=== PATIENT | female | born 1955 | race African-American/Black ===

== ENCOUNTER 2016-10-18 05:46 | Emergency (ER) | payer OTHER ==
[~2016-10-18] VITALS: Ht 157.5 cm; Wt 58.1 kg
[~2016-10-18 05:46] MED LIST: ACETAMINOPHEN500 M5 PO; AUGMENTIN 875-1 EAC1 ORAL; BACTRIM DS TAB1 EAC1 ORAL; BENADRYL12.5 M1 PO; CEPHALEXIN500 MG ORAL; COLACE100 MG ORAL; CYCLOBENZAPRINE10 MG ORAL; IBUPROFEN600 MG ORAL; KEFLEX500 MG ORAL; NEXIUM20 MG ORAL; NITROFURANTOIN100 M2 ORAL; NKM; NORCO 5-325 TA1 EACH ORAL; OMEPRAZOLE40 M1 ORAL; ONDANSETRON ODT4 MG ORAL; PERCOCET 5-3251 EACH ORAL; PRILOSEC OTC20 MG ORAL; TRAMADOL HCL50 MG ORAL; UNOBMED
[2016-10-18] MEDS ORDERED: NKM (06:07)
[2016-10-18] MEDS ORDERED: Oxycodone/Acetaminophen 5-325 ORAL ONE (06:30)
[2016-10-18] MEDS ORDERED: Bacitracin Oint UD TOPIC ONE (06:30)
--- NOTE | 2016-10-18 07:03 | Emergency Room Report ---
History of Present Illness General Chief Complaint: Lower Back Pain or Injury Source: Patient Present Illness HPI The patient fell 2 days ago. She slipped and hit her tailbone. Her zippers cut her elbows. She's complaining of right elbow pain and back pain in tailbone pain. She is able to ambulate - she drove herself here. She denies any numbness. There is no incontinence and she is able to move her bowels. The pain is greater than 10 according to her burning and aching. She is able to sit and stand without any difficulty. Chest pain when she moves her elbow. Her tetanus is less than 10 years. She states she has only taken 500 mg Tylenol with minimal relief. She is not on blood thinners she does not have an oncologic problem. She has a history of scoliosis in the past. She has had x-rays for that problem. She states that she wants x-rays done today. She's had bladder infections and feels that she might have one now. Initially patient is denied allergy to Toradol and then later stated she believes that she might have some strange reaction when she gets Toradol. No fevers, dizziness, GROSS, CP, cough, SOB, change in bowels. Allergies: Coded Allergies: LEVOFLOXACIN (Verified Allergy, Mild, ANAPHYLAXIS, 10/18/16) KETOROLAC TROMETHAMINE (Verified Allergy, Unknown, 10/18/16) Pt received toradol (yesterday) in my care with absolutely no adverse reaction. - Jaber MORPHINE (Verified Allergy, Unknown, 10/18/16) TETRACYCLINE (Verified Allergy, Unknown, 10/18/16) ASPIRIN (Verified Adverse Reaction, Mild, GI UPSET, 05/19/15) CODEINE (Verified Adverse Reaction, Mild, GI UPSET, 05/19/15) Patient History Past Medical History: see triage record, other - scoleosis Social History: Reports: smoking Social History Narrative patient drove herself here and can have that person give her a ride home Last Menstrual Period: unk Now: No Reviewed Nursing Documentation: PMH: Agreed, PSxH: Agreed Nursing Documentation-PMH Hx Hypertension: No Hx Pacemaker: No Hx Asthma: Yes Hx COPD: No Hx Cancer: No Hx Dialysis: No History Of Psychiatric Problem: Yes - depression Hx Neurological Problems: No Hx Cerebrovascular Accident: No Hx Seizures: No Review of Systems All Other Systems: negative except mentioned in HPI Physical Exam Vital Signs Date Time Temp Pulse Resp B/P Pulse Ox O2 Delivery O2 Flow Rate FiO2 10/18/16 05:58 97.5 76 18 125/85 97 Room Air Sp02 EP Interpretation: reviewed, normal General Appearance: well appearing, no apparent distress, GCS 15 Head: normocephalic, atraumatic Eyes: bilateral eye PERRL, bilateral eye normal inspection ENT: moist mucus membranes Neck: full range of motion, supple, no bony tend Respiratory: lungs clear, normal breath sounds Cardiovascular #1: regular rate, rhythm Cardiovascular #2: 2+ radial (R) Gastrointestinal: normal inspection, normal bowel sounds, non tender, no mass, non-distended Musculoskeletal: gait/station normal, normal range of motion, other - lumbar tenderness and scoleosis - upper chest Neurologic: alert, oriented x3, motor strength/tone normal, DTRs symmetric, SLR negative - except for R leg - some tenderness at 90 degrees (but able to sit and lay down without diffitulty), sensory intact, cerebellar normal, normal gait, speech normal Reflexes: 2+ knee (R), 2+ knee (L), 2+ ankle (R), 2+ ankle (L) Skin: normal inspection, warm/dry, abrasions - forearms Medical Decision Making Diagnostic Impression: Primary Impression: Contusion of elbow Additional Impressions: Lumbar strain Qualified Codes: S39.012A - Strain of muscle, fascia and tendon of lower back , initial encounter Hx of scoliosis Back pain post fall ER Course Patient presents with back pain after slip and fall. History of scoliosis. Differential includes fracture, strain, sprain. Exam is against this being a fracture and she has no red flag symptoms. She still insisted that she wants x- rays done including her right elbow. In addition she has dysuria and so urinalysis will be obtained. X-rays have been ordered and Percocet was ordered. Toradol was initially considered however the fact she has some possible adverse reaction this was held at the moment. Xrays being performed. Before I left, she states the Percocet had excellent results in relieving her pain. Signed out to Dr. Malin. Labs Test 10/18/16 07:50 Urine Color Pale yellow Urine Appearance Clear Urine pH 7 (4.5-8.0) Urine Specific [place] 1.005 (1.005-1.035) Urine Protein Negative (NEGATIVE) Urine Glucose (UA) Negative (NEGATIVE) Urine Ketones Negative (NEGATIVE) Urine Occult Blood 4+ (NEGATIVE) Urine Nitrite Negative (NEGATIVE) Urine Bilirubin Negative (NEGATIVE) Urine Urobilinogen Normal MG/DL (0.0-1.0) Urine Leukocyte Esterase Negative (NEGATIVE) Urine RBC 2-4 /HPF (0 - 2) Urine WBC 0-2 /HPF (0 - 2) Urine Squamous Epithelial Cells Occasional /LPF Urine Bacteria Occasional /HPF (NONE) Last Vital Signs Date Time Temp Pulse Resp B/P Pulse Ox O2 Delivery O2 Flow Rate FiO2 10/18/16 08:44 97.5 72 17 125/78 99 Room Air Status: improved Disposition: HOME, SELF-CARE Condition: Improved Scripts Oxycodone/Acetaminophen 5-325* (PERCOCET 5-325 MG TABLET*) 1 Each Tablet 1 TAB ORAL Q6H Y for For Pain, #15 TAB Prov: Bruno Malin MD 10/18/16 Referrals: [facility] HUGHES,REFERRING (PCP) Lewis Jones M.D. Oct 18, 2016 07:03
[2016-10-18 07:58] VITALS: BP 123/81
--- NOTE | 2016-10-18 07:58 | Emergency Room Report ---
History of Present Illness General Chief Complaint: Lower Back Pain or Injury Source: Patient Present Illness Allergies: Coded Allergies: LEVOFLOXACIN (Verified Allergy, Mild, ANAPHYLAXIS, 10/18/16) KETOROLAC TROMETHAMINE (Verified Allergy, Unknown, 10/18/16) Pt received toradol (yesterday) in my care with absolutely no adverse reaction. - Jaber MORPHINE (Verified Allergy, Unknown, 10/18/16) TETRACYCLINE (Verified Allergy, Unknown, 10/18/16) ASPIRIN (Verified Adverse Reaction, Mild, GI UPSET, 05/19/15) CODEINE (Verified Adverse Reaction, Mild, GI UPSET, 05/19/15) Patient History Last Menstrual Period: unk Now: No Nursing Documentation-PMH Hx Hypertension: No Hx Pacemaker: No Hx Asthma: Yes Hx COPD: No Hx Cancer: No Hx Dialysis: No History Of Psychiatric Problem: Yes - depression Hx Neurological Problems: No Hx Cerebrovascular Accident: No Hx Seizures: No Physical Exam Vital Signs Date Time Temp Pulse Resp B/P Pulse Ox O2 Delivery O2 Flow Rate FiO2 10/18/16 05:58 97.5 76 18 125/85 97 Room Air Medical Decision Making Diagnostic Impression: Primary Impression: Fall Additional Impressions: Elbow abrasion Low back pain Low back pain associated with a spinal disorder other than radiculopathy or spinal stenosis Low back pain at multiple sites ER Course Patient signed out to me by Dr. Jones, pending final reading is on x-rays. Patient had a fall 2 days ago, she is been observed ambulate without difficulty in the ER, x-rays of the elbow, spine do not reveal fracture though there is significant scoliosis. Patient received Percocet and had some improvement in her pain. Patient be discharged with family to home to followup with primary physician with a short course of pain medicines and counseling on low backache. Also had a urinalysis which is pending, based on urinalysis results will determine if patient needs antibiotics or not. Laboratory Tests Test 10/18/16 07:50 Urine Color Pale yellow Urine Appearance Clear Urine pH 7 (4.5-8.0) Urine Specific [place] 1.005 (1.005-1.035) Urine Protein Negative (NEGATIVE) Urine Glucose (UA) Negative (NEGATIVE) Urine Ketones Negative (NEGATIVE) Urine Occult Blood 4+ (NEGATIVE) H Urine Nitrite Negative (NEGATIVE) Urine Bilirubin Negative (NEGATIVE) Urine Urobilinogen Normal MG/DL (0.0-1.0) Urine Leukocyte Esterase Negative (NEGATIVE) Urine RBC Pending Urine WBC Pending Urine Squamous Epithelial Cells Pending Urine Bacteria Pending Other X-Ray Diagnostic Results Other X-Ray Diagnostic Results : X-Ray Ordered: spine and elbow Date: Oct 18, 2016 Time: 07:56 EP Interpretation: Yes Findings: no fractures, no dislocation, no soft tissue swelling, other - iliopsoas, no fractures Number of Views: other - multiple Reevaluation Time: 07:56 Last Vital Signs Date Time Temp Pulse Resp B/P Pulse Ox O2 Delivery O2 Flow Rate FiO2 10/18/16 05:58 97.5 76 18 125/85 97 Room Air Status: improved Disposition: HOME, SELF-CARE Condition: Stable Scripts Oxycodone/Acetaminophen 5-325* (PERCOCET 5-325 MG TABLET*) 1 Each Tablet 1 TAB ORAL Q6H Y for For Pain, #15 TAB Prov: Bruno Malin MD 10/18/16 Referrals: MG HUGHES,REFERRING (PCP) Bruno Malin MD Oct 18, 2016 07:57
[2016-10-18 08:24] LABS: APPEARANCE,URINE CLEAR; KETONES,URINE NEGATIVE (NEGATIVE); LEUKOCYTE ESTERASE ,URINE NEGATIVE (NEGATIVE); NITRITE,URINE NEGATIVE (NEGATIVE); PH,URINE 7 (4.5-8.0); PROTEIN,URINE NEGATIVE (NEGATIVE); UROBILINOGEN,URINE NORMAL MG/DL (0.0-1.0)
[2016-10-18] MEDS ORDERED: PERCOCET 5-3251 EACH ORAL (08:27)
--- NOTE | 2016-10-18 08:28 | Diagnostic Imaging Report ---
Indications: Fall, low back pain. Technique: 3 views of the lumbar spine Findings: Comparison: None Mild dextroscoliosis. Minimal lateral subluxations are present at L2-3 through L4-5. Vertebral alignment otherwise intact. No fracture, lytic destruction, or other acute changes are demonstrated. Mild facet sclerosis L5-S1. Scattered arterial mural calcification. IMPRESSION: No evidence of acute injury Mild lower lumbar facet arthropathy Mild scoliosis
--- NOTE | 2016-10-18 08:28 | Diagnostic Imaging Report ---
Indications: , Back pain. Technique: 3 views of the thoracic spine Findings: Comparison: None Moderate S-shaped scoliosis is present. Vertebral and intact.. No fracture, lytic destruction, paraspinous soft tissue swelling, or other acute changes are demonstrated. Multilevel disc space narrowing with marginal osteophyte formation.. IMPRESSION: No evidence of acute injury to the thoracic spine Scoliosis Degenerative spondylosis.
--- NOTE | 2016-10-18 08:30 | Diagnostic Imaging Report ---
Indications: Wall, sacrococcygeal injury, pain Technique: Two-view sacrum and coccyx. Findings: Comparison: None No fracture, dislocation, joint space widening , surrounding soft tissue swelling/foreign body/other abnormality, or other acute changes are identified. Small nodular calcific/metallic densities overlying the sacrum on AP view, not seen on lateral view, are likely external to the patient. IMPRESSION: No evidence of acute injury.
[2016-10-18 08:31] LABS: BACTERIA,URINE OCCASIONAL /HPF; SQUAMOUS EPITHELIAL CELL,UR OCCASIONAL /LPF (NONE/OCC); WBC,URINE 0-2 /HPF (0 - 2)
--- NOTE | 2016-10-18 08:33 | Diagnostic Imaging Report ---
Indications: Fall, right elbow injury, pain Technique: 3 views right elbow. Findings: Comparison: None No fracture, dislocation, joint space widening , fat pad displacement , surrounding soft tissue swelling/foreign body/other abnormality, or other acute changes are identified. IMPRESSION: No evidence of acute injury.
[2016-10-18 08:39] VITALS: BP 125/78
[2016-10-18 08:44] VITALS: BP 125/78
== END 2016-10-18 08:45 | disposition home or self-care (01) ==
LOC: EMR 06:20
DX: M54.5 Low back pain (principal); S50.311A Abrasion of right elbow, initial encounter; W01.0XXA Fall on same level from slipping, tripping and stumbling without subsequent striking against object, initial encounter; Y92.89 Other specified places as the place of occurrence of the external cause; Y99.9 Unspecified external cause status; M41.9 Scoliosis, unspecified; J45.909 Unspecified asthma, uncomplicated; F32.9 Major depressive disorder, single episode, unspecified; Z88.3 Allergy status to other anti-infective agents; Z88.5 Allergy status to narcotic agent; Z88.6 Allergy status to analgesic agent
CPT/HCPCS: 72020; 72070; 72220; 81003; 99284

== ENCOUNTER 2017-12-13 01:06 | Emergency (ER) | payer OTHER ==
[~2017-12-13] VITALS: Ht 157.5 cm; Wt 57.6 kg
[2017-12-13 01:41] VITALS: BP 119/79
[2017-12-13] MEDS ORDERED: TRAMADOL HCL50 MG ORAL (02:02)
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
[2017-12-13 02:10] VITALS: BP 119/79
== END 2017-12-13 02:10 | disposition home or self-care (01) ==
LOC: EMR 01:47
DX: S50.01XA Contusion of right elbow, initial encounter (principal); J45.909 Unspecified asthma, uncomplicated; Z88.1 Allergy status to other antibiotic agents; Z88.6 Allergy status to analgesic agent; V43.52XA Car driver injured in collision with other type car in traffic accident, initial encounter; Y92.410 Unspecified street and highway as the place of occurrence of the external cause
CPT/HCPCS: 99283

== ENCOUNTER 2019-11-19 07:42 | Inpatient (IN) | payer MEDICARE, OTHER ==
[~2019-11-19] VITALS: Ht 157.5 cm; Wt 61.7 kg
[2019-11-19] MEDS ORDERED: ASPIR 8181 MG ORAL (07:50)
[2019-11-19] MEDS ORDERED: ACETAMINOPHEN500 M5 ORAL (07:50)
--- NOTE | 2019-11-19 08:10 | Emergency Room Report ---
History of Present Illness General Chief Complaint: Abdominal Pain Source: Patient Present Illness HPI Patient presents with 1 week of abdominal pain. It is become severe over the last 24 hours. Is diffuse in her abdomen. She been vomiting no blood. She is passing some bright red blood per rectum also and may be some clot material. No diarrhea. No dysuria. She had fevers last night and felt chilled but did not document her temperature. She is taking xdme-bol-ebwrwsw pain medication without relief. She is never had pain like this before. She describes it as crampy. It she says is greater than 10/10 at this time nonradiating but diffuse. No sore throat, chest pain, palpitations, shortness of breath, rashes, depression, anxiety, visual changes, dizziness, headache. Allergies: Coded Allergies: LEVOFLOXACIN (Verified Allergy, Mild, ANAPHYLAXIS, 10/18/16) KETOROLAC TROMETHAMINE (Verified Allergy, Unknown, 10/18/16) Pt received toradol (yesterday) in my care with absolutely no adverse reaction. - Jaber MORPHINE (Verified Allergy, Unknown, 10/18/16) TETRACYCLINE (Verified Allergy, Unknown, 10/18/16) ASPIRIN (Verified Adverse Reaction, Mild, GI UPSET, 05/19/15) CODEINE (Verified Adverse Reaction, Mild, GI UPSET, 05/19/15) Patient History Past Medical History: see triage record Past Surgical History: , hysterectomy - partial Social History: Denies: smoking - former : 7 Nursing Documentation-PMH Hx Hypertension: No Hx Pacemaker: No Hx Asthma: Yes Hx COPD: No Hx Cancer: No Hx Dialysis: No Hx Neurological Problems: No Hx Cerebrovascular Accident: No Hx Seizures: No Physical Exam Vital Signs Date Time Temp Pulse Resp B/P (MAP) Pulse Ox O2 Delivery O2 Flow Rate FiO2 11/19/19 07:45 97.5 82 19 132/83 (99) 99 Room Air Medical Decision Making Diagnostic Impression: Primary Impression: Diverticulitis Additional Impression: Rectal bleeding ER Course Patient presents with abdominal pain for 1 week worsening over the last 24 hours. Differential includes diverticulitis, perforated ulcer, cholecystitis, urinary tract infection amongst others. Abdomen is nonsurgical at this time with peritonitis however work-up needs to be including EKG, chest x-ray, CT abdomen and pelvis with oral and IV contrast and labs. The patient will be given IV hydration, Reglan, Benadryl and Dilaudid. EKG without injury. Chest x-ray dextroscoliosis with atelectasis. White count normal. Left shift. Elevated BUN. Red cells in urine. CT scan as listed. Pain medicine repeated. Cefepime ordered for possible diverticulitis. Patient improved and admitted to medical floor. Surgical consult. Examined by admitting physician in emergency department. Laboratory Tests Test 11/19/19 07:56 11/19/19 08:05 Urine Color Pale yellow Urine Appearance Clear Urine pH 8 (4.5-8.0) Urine Specific [place] 1.015 (1.005-1.035) Urine Protein Negative (NEGATIVE) Urine Glucose (UA) Negative (NEGATIVE) Urine Ketones Negative (NEGATIVE) Urine Blood 4+ (NEGATIVE) H Urine Nitrite Negative (NEGATIVE) Urine Bilirubin Negative (NEGATIVE) Urine Urobilinogen Normal MG/DL (0.0-1.0) Urine Leukocyte Esterase Negative (NEGATIVE) Urine RBC Tntc /HPF (0 - 2) H Urine WBC 0-2 /HPF (0 - 2) Urine Squamous Epithelial Cells Few /LPF (NONE/OCC) Urine Bacteria Occasional /HPF (NONE) White Blood Count 10.8 K/UL (4.8-10.8) Red Blood Count 5.00 M/UL (4.20-5.40) Hemoglobin 14.9 G/DL (12.0-16.0) Hematocrit 43.5 % (37.0-47.0) Mean Corpuscular Volume 87 FL (80-99) Mean Corpuscular Hemoglobin 29.8 PG (27.0-31.0) Mean Corpuscular Hemoglobin Concent 34.2 G/DL (32.0-36.0) Red Cell Distribution Width 11.4 % (11.6-14.8) L Platelet Count 350 K/UL (150-450) Mean Platelet Volume 5.8 FL (6.5-10.1) L Neutrophils (%) (Auto) 80.1 % (45.0-75.0) H Lymphocytes (%) (Auto) 14.1 % (20.0-45.0) L Monocytes (%) (Auto) 4.8 % (1.0-10.0) Eosinophils (%) (Auto) 0.2 % (0.0-3.0) Basophils (%) (Auto) 0.7 % (0.0-2.0) Prothrombin Time 9.9 SEC (9.30-11.50) Prothrombin Time INR 0.9 (0.9-1.1) Activated Partial Thromboplast Time 27 SEC (23-33) Sodium Level 142 MMOL/L (136-145) Potassium Level 4.3 MMOL/L (3.5-5.1) Chloride Level 108 MMOL/L (98-107) H Carbon Dioxide Level 26 MMOL/L (21-32) Anion Gap 8 mmol/L (5-15) Blood Urea Nitrogen 19 mg/dL (7-18) H Creatinine 0.7 MG/DL (0.55-1.30) Estimate Glomerular Filtration Rate > 60 mL/min (>60) Glucose Level 105 MG/DL (74-106) Calcium Level 9.1 MG/DL (8.5-10.1) Total Bilirubin 0.2 MG/DL (0.2-1.0) Aspartate Amino Transferase (AST) 18 U/L (15-37) Alanine Aminotransferase (ALT) 17 U/L (12-78) Alkaline Phosphatase 114 U/L (46-116) Troponin I 0.000 ng/mL (0.000-0.056) Total Protein 7.5 G/DL (6.4-8.2) Albumin 3.7 G/DL (3.4-5.0) Globulin 3.8 g/dL Albumin/Globulin Ratio 1.0 (1.0-2.7) Lipase 104 U/L (73-393) EKG Diagnostic Results Rate: normal Rhythm: NSR ST Segments: no acute changes Rhythm Strip Diag. Results EP Interpretation: yes Rhythm: NSR, no PVC's, no ectopy Chest X-Ray Diagnostic Results Chest X-Ray Diagnostic Results : Chest X-Ray Ordered: Yes # of Views/Limited/Complete: 1 View Indication: Other EP Interpretation: Yes Interpretation: no consolidation, no effusion, no pneumothorax, other - Dextroscoliosis with some atelectasis Impression: Other Electronically Signed by: Electronically signed by Lewis Jones MD CT/MRI/US Diagnostic Results CT/MRI/US Diagnostic Results : Imaging Test Ordered: Abdomen pelvis Impression Colitis versus diverticulitis Last Vital Signs Date Time Temp Pulse Resp B/P (MAP) Pulse Ox O2 Delivery O2 Flow Rate FiO2 11/19/19 13:30 95 16 126/78 96 Room Air 11/19/19 08:50 97.5 Status: improved Disposition: PLACE IN OBSERVATION Condition: Serious Referrals: NOT CHOSEN IPA/,REFERRING (PCP) Lewis Jones MD Nov 19, 2019 08:10
[2019-11-19] MEDS ORDERED: Hydromorphone 0.5mg/0.5ml inj IVP ONE ×2 (08:15→13:30)
[2019-11-19] MEDS ORDERED: Omnipaque-300 100ml vial INJ PRN (08:15)
[2019-11-19] MEDS ORDERED: DiphenhydrAMINE 50mg/ml Inj IVP ONE (08:15)
[2019-11-19] MEDS ORDERED: Metoclopramide 10mg/2ml Inj IVP ONE (08:15)
--- NOTE | 2019-11-19 08:44 | NUR ---
ED Nurse Note: pt arrives from home for c/o abd pain x 1 month and this am woke up with bright red blood in stool. denies dysuria or frequency. states nausea without vomiting. skin w/d warm to touch. lungs cta. abd soft nt. states pain all over abd. relates she does have a hx of hemorrhoids.
--- NOTE | 2019-11-19 08:49 | NUR ---
ED Nurse Note: pt relates pain has decreased resting in room with even resp, appears comfortable
[2019-11-19 08:53] VITALS: BP 126/87
[2019-11-19 09:13] LABS: APPEARANCE,URINE CLEAR; BILIRUBIN, URINE NEGATIVE (NEGATIVE); COLOR,URINE PALE YELLOW; GLUCOSE, URINE (UA) NEGATIVE (NEGATIVE); KETONES,URINE NEGATIVE (NEGATIVE); PH,URINE 8 (4.5-8.0); PROTEIN,URINE NEGATIVE (NEGATIVE)
[2019-11-19 09:13] LABS: BASOPHILS % (AUTO) 0.7 % (0.0-2.0); EOSINOPHILS % (AUTO) 0.2 % (0.0-3.0); HEMATOCRIT 43.5 % (37.0-47.0); HEMOGLOBIN 14.9 G/DL (12.0-16.0); LYMPHOCYTES % (AUTO) 14.1 % (20.0-45.0); MEAN CORPUSCULAR VOLUME 87 FL (80-99); MONOCYTES % (AUTO) 4.8 % (1.0-10.0); NEUTROPHILS % (AUTO) 80.1 % (45.0-75.0); PLATELET COUNT 350 K/UL (150-450); RED CELL DISTRIBUTION WIDTH 11.4 % (11.6-14.8); WHITE BLOOD COUNT 10.8 K/UL (4.8-10.8)
[2019-11-19 09:14] LABS: LEUKOCYTE ESTERASE ,URINE NEGATIVE (NEGATIVE); NITRITE,URINE NEGATIVE (NEGATIVE); UROBILINOGEN,URINE NORMAL MG/DL (0.0-1.0)
[2019-11-19 09:14] LABS: ANION GAP 8 mmol/L (5-15); BLOOD UREA NITROGEN 19 mg/dL (7-18); CALCIUM 9.1 MG/DL (8.5-10.1); CARBON DIOXIDE 26 MMOL/L (21-32); CHLORIDE 108 MMOL/L (98-107); CREATININE 0.7 MG/DL (0.55-1.30); POTASSIUM 4.3 MMOL/L (3.5-5.1); SODIUM 142 MMOL/L (136-145)
[2019-11-19 09:16] LABS: INR 0.9 (0.9-1.1)
[2019-11-19 09:19] LABS: ALANINE AMINOTRANSFERASE 17 U/L (12-78); ALBUMIN 3.7 G/DL (3.4-5.0); ALKALINE PHOSPHATASE 114 U/L (46-116); ASPARTATE AMINO TRANSFERASE 18 U/L (15-37); BILIRUBIN,TOTAL 0.2 MG/DL (0.2-1.0)
--- NOTE | 2019-11-19 09:31 | Diagnostic Imaging Report ---
EXAM: XR Chest, 1 View CLINICAL HISTORY: ABD PAIN TECHNIQUE: Frontal view of the chest. COMPARISON: Chest x-ray dated 06/21/13 FINDINGS: Lungs: Subsegmental atelectasis in bilateral lung bases. Pleural space: Unremarkable. The costophrenic angles are sharp. No visible pneumothorax. Heart: Unremarkable. No cardiomegaly. Mediastinum: Unremarkable. Bones/joints: Dextroscoliosis centered in the mid thoracic spine. Tubes, lines and devices: Telemetry leads overlie the thorax. IMPRESSION: 1. Subsegmental atelectasis in bilateral lung bases. 2. Dextroscoliosis centered in the mid thoracic spine.
--- NOTE | 2019-11-19 09:44 | NUR ---
ED Nurse Note: tolerates po contrast and ivf infusion well. sleeping in room.
--- NOTE | 2019-11-19 11:18 | NUR ---
ED Nurse Note: pt to ct scan
--- NOTE | 2019-11-19 11:30 | NUR ---
ED Nurse Note: returned from ct scan.no changes in status
--- NOTE | 2019-11-19 11:59 | Diagnostic Imaging Report ---
EXAM: CT Abdomen and Pelvis With Intravenous Contrast CLINICAL HISTORY: ABD PAIN TECHNIQUE: Axial computed tomography images of the abdomen and pelvis with intravenous contrast. CTDI is 4.70 mGy and DLP is 232.50 mGy-cm. One or more of the following dose reduction techniques were used: automated exposure control, adjustment of the mA and/or kV according to patient size, use of iterative reconstruction technique. COMPARISON: CT abdomen pelvis dated 06/08/16 FINDINGS: Lung bases: Mild dependent atelectasis in bilateral lung bases. ABDOMEN: Liver: Unremarkable. No suspicious parenchymal lesions Gallbladder and bile ducts: Unremarkable. No calcified stones. No ductal dilation. Pancreas: Unremarkable. No mass. No ductal dilation. Spleen: Unremarkable. No splenomegaly. Adrenals: Unremarkable. No mass. Kidneys and ureters: Unremarkable. No solid mass. No hydronephrosis. Stomach and bowel: Segmental wall thickening throughout the descending and sigmoid colon, suggesting infectious or inflammatory colitis or diverticulitis. Remainder of the colon appears unremarkable. No abnormally distended loops of small bowel. GE junction and stomach appear unremarkable. PELVIS: Appendix: The appendix appears normal. Bladder: Unremarkable. No visible stones. Reproductive: The uterus and ovaries are not visualized and may be surgically absent. ABDOMEN and PELVIS: Intraperitoneal space: Unremarkable. No free air. No significant fluid collection. Bones/joints: No acute fracture. No dislocation. Soft tissues: Unremarkable. Vasculature: Atherosclerosis throughout the abdominal aorta and its proximal branches. No abdominal aortic aneurysm. Lymph nodes: Unremarkable. No enlarged lymph nodes. IMPRESSION: Findings suggesting infectious or inflammatory colitis versus diverticulitis, with segmental wall thickening throughout the descending and sigmoid colon. Mild adjacent inflammatory stranding. No adjacent free air or fluid collection. No evidence of bowel obstruction.
[2019-11-19 12:00] VITALS: BP 124/65
--- NOTE | 2019-11-19 12:19 | NUR ---
ED Nurse Note: belongings list done. pt prepared to transfer to m/s room. no new c/o tolerating ivf well
[2019-11-19] MEDS ORDERED: Cefepime HCl 1 GM in D5W 55 ML IVPB ONE (13:00)
--- NOTE | 2019-11-19 13:10 | NUR ---
NURSE NOTES: Received telephone report from ER nurse DIANE Jackson. Awaiting patient.
--- NOTE | 2019-11-19 13:18 | NUR ---
ED Nurse Note: pt requesting more pain meds prior to transfer to [address] [place] [address] taking report on pt and awaiting pt.
[2019-11-19 13:19] VITALS: BP 124/78
--- NOTE | 2019-11-19 13:30 | NUR ---
NURSE NOTES: Received patient from ER in [facility] via electromedical equipment technician. Belongings checked with leni, Allan, and patient. Patient has $84 in possession, which she wants to keep. Documented on belonging list. Patient A&Ox4, on room air. No signs of distress or labored breathing. IV intact, patent, and infusing IV fluids and antibiotics from ER. Bed in lowest position with call light in reach. Will notify MD and monitor patient.
[2019-11-19 13:45] VITALS: BP 121/75
[2019-11-19] MEDS ORDERED: Labetalol 5mg/ml 20ml vial IV PRN (15:15)
[2019-11-19] MEDS ORDERED: Acetaminophen (Non formulary) 100 ML IV PRN (15:15)
--- NOTE | 2019-11-19 15:21 | History & Physical ---
History of Present Illness General Date patient seen: Nov 19, 2019 Time patient seen: 04:00 Reason for Hospitalization: Abdominal Pain Present Illness HPI This is a 63-year-old female with a past medical history of gastritis and diabetes type 2 mellitus, currently managed by diet and lifestyle, who presents to emergency room with a chief complaint of worsening abdominal pain with associated diarrhea, nausea, vomiting, hematochezia and melena for the past 2 days. Patient states that the hematochezia and melena have been ongoing for approximately 2 days however the abdominal pain has actually been consistently going on for around 2 months. Patient states she had a colonoscopy around 2 years ago and was told the results were normal. Patient only takes omeprazole at home for her gastritis. In the emergency room CT abdomen pelvis was performed which revealed concerning findings for colitis versus diverticulitis, and in the ED, surgery was consulted. Given the patient does have melena, have also consulted GI as this could be inflammatory bowel disease not yet diagnosed as patient is nonseptic appearing he does not have an elevated white blood cell count. Patient denies a family history of autoimmune disease, inflammatory bowel disease, she only states there is a family history of cancer, unknown what type , and diabetes Currently she is hemodynamically stable and otherwise doing well. Only complaint at this time is abdominal pain, denies chest pain, denies shortness of breath. She did have some nondescript right breast pain but after examining breasts no signs of abscess or lumps. Allergies: Coded Allergies: LEVOFLOXACIN (Verified Allergy, Mild, ANAPHYLAXIS, 10/18/16) KETOROLAC TROMETHAMINE (Verified Allergy, Unknown, 10/18/16) Pt received toradol (yesterday) in my care with absolutely no adverse reaction. - Jaber MORPHINE (Verified Allergy, Unknown, 10/18/16) TETRACYCLINE (Verified Allergy, Unknown, 10/18/16) ASPIRIN (Verified Adverse Reaction, Mild, GI UPSET, 05/19/15) CODEINE (Verified Adverse Reaction, Mild, GI UPSET, 05/19/15) Medication History Scheduled Acetaminophen (Acetaminophen), 650 MG ORAL Q4H, (Reported) Aspirin* (Aspir 81*), 81 MG ORAL DAILY, (Reported) Esomeprazole Magnesium (Nexium), 20 MG ORAL DAILY, (Reported) Discontinued Medications Tramadol Hcl* (Ultram*), 50 MG ORAL Q6H PRN for For Pain Discontinued Reason: Therapy completed Patient History History Provided By: Patient Healthcare decision maker Resuscitation status Advanced Directive on File Review of Systems Review of Symptoms General ROS: no weight loss or fever Psychological ROS: no depression or mood changes, no memory loss Ophthalmic ROS: no visual changes or eye irritation ENT ROS: no nasal congestion, hearing loss, dizziness Allergy and Immunology ROS: no allergic symptoms or urticaria Hematological and Lymphatic ROS: no swollen glands, unusual bleeding or bruising Endocrine ROS: no polyuria, polydipsia, weight changes, temperature intolerance Respiratory ROS: no cough, shortness of breath, or wheezing Cardiovascular ROS: no chest pain or dyspnea on exertion Gastrointestinal ROS: Diffuse abdominal pain, blood in stool, nausea and vomiting Musculoskeletal ROS: no myalgias or arthralgias Neurological ROS: no TIA or stroke symptoms Dermatological ROS: no new or changing skin lesions, rashes or pruritis Physical Exam Physical Exam General appearance: alert, cooperative, no distress, appears stated age Head: Normocephalic, without obvious abnormality, atraumatic Eyes: conjunctivae/corneas clear. PERRL, EOM's intact. Fundi benign Throat: Lips, mucosa, and tongue normal. Teeth and gums normal Neck: supple, symmetrical, trachea midline, no adenopathy, thyroid: not enlarged, symmetric, no tenderness/mass/nodules, no carotid bruit and no JVD Lungs: clear to auscultation bilaterally Heart: regular rate and rhythm, S1, S2 normal, no murmur, click, rub or gallop Abdomen: Diffusely tender to palpation however normal active bowel sounds Extremities: extremities normal, atraumatic, no cyanosis or edema Pulses: 2+ and symmetric Skin: Skin color, texture, turgor normal. No rashes or lesions Neurologic: Grossly normal Last 24 Hour Vital Signs Date Time Temp Pulse Resp B/P (MAP) Pulse Ox O2 Delivery O2 Flow Rate FiO2 11/19/19 13:30 95 16 126/78 96 Room Air 11/19/19 13:19 74 20 124/78 99 Room Air 11/19/19 12:00 76 20 124/65 99 Room Air 11/19/19 08:53 68 20 126/87 99 Room Air 11/19/19 08:51 68 19 Room Air 11/19/19 08:50 97.5 11/19/19 07:45 97.5 82 19 132/83 (99) 99 Room Air Laboratory Tests Test 11/19/19 07:56 11/19/19 08:05 Urine Color Pale yellow Urine Appearance Clear Urine pH 8 (4.5-8.0) Urine Specific [place] 1.015 (1.005-1.035) Urine Protein Negative (NEGATIVE) Urine Glucose (UA) Negative (NEGATIVE) Urine Ketones Negative (NEGATIVE) Urine Blood 4+ (NEGATIVE) H Urine Nitrite Negative (NEGATIVE) Urine Bilirubin Negative (NEGATIVE) Urine Urobilinogen Normal MG/DL (0.0-1.0) Urine Leukocyte Esterase Negative (NEGATIVE) Urine RBC Tntc /HPF (0 - 2) H Urine WBC 0-2 /HPF (0 - 2) Urine Squamous Epithelial Cells Few /LPF (NONE/OCC) Urine Bacteria Occasional /HPF (NONE) White Blood Count 10.8 K/UL (4.8-10.8) Red Blood Count 5.00 M/UL (4.20-5.40) Hemoglobin 14.9 G/DL (12.0-16.0) Hematocrit 43.5 % (37.0-47.0) Mean Corpuscular Volume 87 FL (80-99) Mean Corpuscular Hemoglobin 29.8 PG (27.0-31.0) Mean Corpuscular Hemoglobin Concent 34.2 G/DL (32.0-36.0) Red Cell Distribution Width 11.4 % (11.6-14.8) L Platelet Count 350 K/UL (150-450) Mean Platelet Volume 5.8 FL (6.5-10.1) L Neutrophils (%) (Auto) 80.1 % (45.0-75.0) H Lymphocytes (%) (Auto) 14.1 % (20.0-45.0) L Monocytes (%) (Auto) 4.8 % (1.0-10.0) Eosinophils (%) (Auto) 0.2 % (0.0-3.0) Basophils (%) (Auto) 0.7 % (0.0-2.0) Prothrombin Time 9.9 SEC (9.30-11.50) Prothromb Time International Ratio 0.9 (0.9-1.1) Activated Partial Thromboplast Time 27 SEC (23-33) Sodium Level 142 MMOL/L (136-145) Potassium Level 4.3 MMOL/L (3.5-5.1) Chloride Level 108 MMOL/L (98-107) H Carbon Dioxide Level 26 MMOL/L (21-32) Anion Gap 8 mmol/L (5-15) Blood Urea Nitrogen 19 mg/dL (7-18) H Creatinine 0.7 MG/DL (0.55-1.30) Estimat Glomerular Filtration Rate > 60 mL/min (>60) Glucose Level 105 MG/DL (74-106) Calcium Level 9.1 MG/DL (8.5-10.1) Total Bilirubin 0.2 MG/DL (0.2-1.0) Aspartate Amino Transf (AST/SGOT) 18 U/L (15-37) Alanine Aminotransferase (ALT/SGPT) 17 U/L (12-78) Alkaline Phosphatase 114 U/L (46-116) Troponin I 0.000 ng/mL (0.000-0.056) Total Protein 7.5 G/DL (6.4-8.2) Albumin 3.7 G/DL (3.4-5.0) Globulin 3.8 g/dL Albumin/Globulin Ratio 1.0 (1.0-2.7) Lipase 104 U/L (73-393) Height (Feet): 5 Height (Inches): 2.00 Weight (Pounds): 128 Medications Current Medications Medications (Trade) Dose Ordered Sig/Raimundo Route PRN Reason Start Time Stop Time Status Last Admin Dose Admin Barium Sulfate (Readi-Cat 2) 450 ml NOW PRN ORAL Radiology Procedure 11/19/19 08:15 11/21/19 08:05 11/19/19 09:14 Iohexol (OMNIPAQUE-300 100ml) 100 ml NOW PRN INJ Radiology Procedure 11/19/19 08:15 11/21/19 08:05 Sodium Chloride 1,000 ml @ 300 mls/hr Q3H20M IV 11/19/19 08:15 12/19/19 08:14 11/19/19 11:43 Assessment/Plan Assessment/Plan: Assessment #Infectious vs Inflammatory Colitis,w/ associated Hematochezia/Melena ( GI symptoms present for 2 months, bleeding present for 2 days) #Gastritis --> Patient on outpatient ppi #DMII--> not on home meds, controlled with diet Plan Consult to GI , Surgery consulted in ER Zosyn IV, Stool Studies including Cdiff, Fecal WBC, and Blood Cx ( although patient is not septic appearing) ESR Protonix IV BID Patient allergic to multiple agents, therefore only option is dilaudid as ofiramev restricted at this facility Obtain A1C, Add insulin as needed PRNs for elevated BP and Nausea Full Liquid diet, avoid DVT ppx w/ concern for GIB MIPS Hospital declaration INPATIENT level of care is warranted for this patient because patient is a 89 year old with who presents with suspicion of . I have a high level of concern because . Patient is at high risk for . Plan of care/treatment include . Patient care is expected to be greater than 2 midnights. OBSERVATION level of care is warranted for this patient. Patient is a 89 year old with who presents with . Patient will be admitted for 1 midnight, but if additional night(s) is/are necessary, patient will be converted to inpatient status for the entire hospitalization Disposition: Once the patient is stable to leave the hospital, I anticipate the patient will likely be discharged to the following environment: Estimated discharge date: I spent 70 minutes on this patient's case, and minutes was dedicated to counseling and/or care coordination. MIPS (Merit-based Incentive Payment System) Applicable CPT: 85833, 98401 CHECK ALL THAT ARE MET: Measure #5 (CHF): All ages. Prescribe DANNY/ARB upon discharge for patients with left ventricular systolic dysfunction. If not, the reason is clearly documented in the medical chart. Measure #8 (CHF): All ages. Prescribe a beta mike upon discharge for patients with left ventricular systolic dysfunction. If not, the reason is clearly documented in the medical chart. Measure #47 Advance care plan or surrogate decision maker documented in the medical record. Measure #130 The provider has documented, updated, or reviewed the patients current medication list and has documented it in the patients note. Measure #374 (All): Send report to referring provider. Measure #407(Sepsis due to MSSA bacteremia): Age 18+ Patient treated with a beta-lactam antibiotic (Nafcillin, Oxacillin or Cefazolin) as definitive therapy. MEDICAL COMPLEXITY High complexity medical decision making (need 2/3 categories) Problem - need 4 points Acute/new problem with new plan for workup (4 points, 1 max) Acute/new problem without additional workup (3 points, 1 max) Unstable chronic problem actively being managed (2 point each, 2 max) Stable chronic problem actively being managed (1 point each, 2 max) Self-limited/transient process (constipation, muscle ache, etc) (1 point each , 2 max) Data - need 4 points Reviewed labs/imaging studies (1 points, 2 max) Independent review of imaging (EKG, xrays, etc) (2 points, 2 max) Discussed case with consult/other MD/RN (2 points, 2 max) High Risk - qualify if have one of the following: Severe exacerbation of acute problem, acute mental status change, IV narcotics , monitoring drug levels (vancomycin, INR, tacrolimus etc) Radha Lewis D.O. Nov 19, 2019 15:21
[2019-11-19] MEDS ORDERED: Enalaprilat 2.5mg/2ml Inj IV PRN (15:30)
[2019-11-19 16:00] VITALS: BP 120/72
[2019-11-19] MEDS: Piperacillin/Tazobactam 3.375 GM in NS 110 ML IVPB SCH ×2 (16:30→22:35)
[2019-11-19] MEDS: HYDROmorphone 1mg/ml Carpuject IVP PRN ×2 (18:26→22:36)
--- NOTE | 2019-11-19 19:19 | NUR ---
HAND-OFF: Report given to Leena Osman RN.
--- NOTE | 2019-11-19 19:50 | NUR ---
received patient on bed, awake and verbally responsive. respirations even and unlabored. no sob. no pain or discomfort. patient is requesting for snack, patient on full liquid diet. bed locked and in lowest position. call light and light button within easy reach. will continue plan of care. Addendum: 11/19/19 at 4 by Leena Crespo RN NURSE NOTES:
[2019-11-19 20:00] VITALS: BP 113/70
[2019-11-19] MEDS: Pantoprazole Inj IVP SCH (21:29)
[2019-11-20] VITALS: BP 114/65
[2019-11-20 04:00] VITALS: BP 115/64
[2019-11-20] MEDS: Piperacillin/Tazobactam 3.375 GM in NS 110 ML IVPB SCH ×3 (05:49→22:05)
[2019-11-20] MEDS: HYDROmorphone 1mg/ml Carpuject IVP PRN (05:54)
--- NOTE | 2019-11-20 07:19 | NUR ---
HAND-OFF: Report given to DIANE CHOW .
--- NOTE | 2019-11-20 07:43 | NUR ---
NURSE NOTES: Received patient in bed awake. No SOB or acute distress. IV line intact and patent, no s/sx of infiltration. Complaining of Dilaudid, requesting change of pain medication, will inform . ARLEEN catherine. Bed locked in lowest position. Call light within reach. Will continue plan of care.
[2019-11-20 08:00] VITALS: BP 100/65
[2019-11-20] MEDS: Pantoprazole Inj IVP SCH ×2 (08:14→20:40)
[2019-11-20 08:49] LABS: BASOPHILS % (AUTO) 0.8 % (0.0-2.0); EOSINOPHILS % (AUTO) 1.6 % (0.0-3.0); HEMATOCRIT 36.6 % (37.0-47.0); HEMOGLOBIN 12.9 G/DL (12.0-16.0); LYMPHOCYTES % (AUTO) 23.8 % (20.0-45.0); MEAN CORPUSCULAR VOLUME 88 FL (80-99); MONOCYTES % (AUTO) 5.8 % (1.0-10.0); PLATELET COUNT 312 K/UL (150-450); RED BLOOD COUNT 4.16 M/UL (4.20-5.40); RED CELL DISTRIBUTION WIDTH 11.4 % (11.6-14.8); WHITE BLOOD COUNT 8.6 K/UL (4.8-10.8)
[2019-11-20 09:31] LABS: ALANINE AMINOTRANSFERASE 16 U/L (12-78); ALBUMIN 3.1 G/DL (3.4-5.0); ALKALINE PHOSPHATASE 96 U/L (46-116); ANION GAP 9 mmol/L (5-15); ASPARTATE AMINO TRANSFERASE 13 U/L (15-37); BILIRUBIN,TOTAL 0.4 MG/DL (0.2-1.0); BLOOD UREA NITROGEN 7 mg/dL (7-18); CALCIUM 8.3 MG/DL (8.5-10.1); CARBON DIOXIDE 24 MMOL/L (21-32); CHLORIDE 109 MMOL/L (98-107); CREATININE 0.7 MG/DL (0.55-1.30); PHOSPHORUS 2.4 MG/DL (2.5-4.9); POTASSIUM 3.2 MMOL/L (3.5-5.1); SODIUM 142 MMOL/L (136-145)
[2019-11-20] MEDS ORDERED: HydrALAZINE 25mg tab ORAL PRN (12:30)
[2019-11-20] MEDS: Morphine Sulfate 2mg/ml Inj(IV/IM USE ONLY) IVP PRN (13:32)
[2019-11-20] MEDS: DiphenhydrAMINE 50mg/ml Inj IVP PRN (13:33)
[2019-11-20] MEDS ORDERED: Nulytely 4L ORAL SCH (14:00)
--- NOTE | 2019-11-20 14:15 | Consultation ---
History of Present Illness General Date patient seen: Nov 20, 2019 Reason for Hospitalization: Abdominal Pain Present Illness HPI This is a very pleasant 63-year-old female with a past medical history of gastritis and diabetes type 2 mellitus who presents to emergency room with a chief complaint of worsening abdominal pain with associated diarrhea, nausea, vomiting, hematochezia and melena for the past 2 days. Patient states that the hematochezia and melena have been ongoing for approximately 2 days however the abdominal pain has actually been consistently going on for around 2-3 months. She states she had a colonoscopy around 6 years ago and was told the results were normal. In the emergency room CT abdomen pelvis was performed which revealed concerning findings for colitis versus diverticulitis. Surgery was consulted to evaluate and assist with care. Patient seen chart reviewed, patient examined. Allergies: Coded Allergies: LEVOFLOXACIN (Verified Allergy, Mild, ANAPHYLAXIS, 10/18/16) KETOROLAC TROMETHAMINE (Verified Allergy, Unknown, 10/18/16) Pt received toradol (yesterday) in my care with absolutely no adverse reaction. - Jaber MORPHINE (Verified Allergy, Unknown, 10/18/16) TETRACYCLINE (Verified Allergy, Unknown, 10/18/16) ASPIRIN (Verified Adverse Reaction, Mild, GI UPSET, 05/19/15) CODEINE (Verified Adverse Reaction, Mild, GI UPSET, 05/19/15) Medication History Scheduled Acetaminophen (Acetaminophen), 650 MG ORAL Q4H, (Reported) Aspirin* (Aspir 81*), 81 MG ORAL DAILY, (Reported) Esomeprazole Magnesium (Nexium), 20 MG ORAL DAILY, (Reported) Discontinued Medications Tramadol Hcl* (Ultram*), 50 MG ORAL Q6H PRN for For Pain Discontinued Reason: Therapy completed Patient History History Provided By: Patient Healthcare decision maker Resuscitation status Chemical (Meds Only) Advanced Directive on File No Past Medical/Surgical History Past Medical/Surgical History: (1) Rectal bleeding (2) Diverticulitis (3) Sciatica (4) Sciatica (5) Migraine (6) Migraine (7) Dysuria (8) 40443 (9) Headache (10) Opiate dependence (11) 01277 (12) [id number] (13) Sepsis (14) UTI (urinary tract infection) (15) UTI (urinary tract infection) (16) Abdominal pain (17) 15768 (18) Foot fracture, left (19) Foot fracture, left (20) Lumbar strain (21) Unspecified injury of lower back, sequela (22) [id number] (23) Abdominal pain of unknown etiology (24) Contusion of right hand (25) Abrasion of left index finger (26) Hx of scoliosis (27) [id number] (28) Contusion of left knee and lower leg (29) Contusion of elbow (30) Should strain (31) UTI (32) abscess Family History Family History: FH: cancer FH: diabetes mellitus FH: urinary cancer Social History Social History: (1) Dysuria (2) Opiate dependence (3) [id number] (4) 01649 (5) Abdominal pain (6) 72923 (7) 57143 (8) Should strain (9) [id number] (10) [id number] (11) abscess (12) Migraine (13) Migraine (14) Foot fracture, left (15) Foot fracture, left (16) UTI (urinary tract infection) (17) Sciatica (18) Headache (19) Sciatica (20) Sepsis (21) UTI (urinary tract infection) (22) Contusion of right hand (23) Abrasion of left index finger (24) Contusion of left knee and lower leg (25) Unspecified injury of lower back, sequela (26) Hx of scoliosis (27) Lumbar strain (28) Contusion of elbow (29) Abdominal pain of unknown etiology (30) UTI (31) Rectal bleeding (32) Diverticulitis Review of Systems Review of Symptoms General ROS: no weight loss or fever Psychological ROS: no depression or mood changes, no memory loss Ophthalmic ROS: no visual changes or eye irritation ENT ROS: no nasal congestion, hearing loss, dizziness Allergy and Immunology ROS: no allergic symptoms or urticaria Hematological and Lymphatic ROS: no swollen glands, unusual bleeding or bruising Endocrine ROS: no polyuria, polydipsia, weight changes, temperature intolerance Respiratory ROS: no cough, shortness of breath, or wheezing Cardiovascular ROS: no chest pain or dyspnea on exertion Gastrointestinal ROS: abdominal pain, bright red blood in stool. Musculoskeletal ROS: no myalgias or arthralgias Neurological ROS: no TIA or stroke symptoms Dermatological ROS: no new or changing skin lesions, rashes or pruritis Physical Exam Physical Exam General appearance: alert, cooperative, no distress, appears stated age Head: Normocephalic, without obvious abnormality, atraumatic Eyes: conjunctivae/corneas clear. PERRL, EOM's intact. Fundi benign Throat: Lips, mucosa, and tongue normal. Teeth and gums normal Neck: supple, symmetrical, trachea midline, no adenopathy, thyroid: not enlarged, symmetric, no tenderness/mass/nodules, no carotid bruit and no JVD Lungs: clear to auscultation bilaterally Heart: regular rate and rhythm, S1, S2 normal, no murmur, click, rub or gallop Abdomen: soft, non-tender. Bowel sounds normal. No masses, no organomegaly Extremities: extremities normal, atraumatic, no cyanosis or edema Pulses: 2+ and symmetric Skin: Skin color, texture, turgor normal. No rashes or lesions Neurologic: Grossly normal Last 24 Hour Vital Signs Date Time Temp Pulse Resp B/P (MAP) Pulse Ox O2 Delivery O2 Flow Rate FiO2 11/20/19 08:00 97.7 73 18 100/65 (77) 98 11/20/19 06:24 97.8 11/20/19 04:00 97.8 61 18 115/64 (81) 96 11/20/19 00:00 97.7 60 18 114/65 (81) 96 11/19/19 21:00 Room Air 11/19/19 20:00 97.9 67 18 113/70 (84) 98 11/19/19 16:00 97.1 75 18 120/72 (88) 98 11/19/19 15:16 Room Air Intake and Output 11/19/19 11/20/19 19:00 07:00 Intake Total 1000 ml 447.5 ml Output Total 250 ml Balance 1000 ml 197.5 ml Intake Oral 0 ml 240 ml IV Total 1000 ml 207.5 ml Output Urine Total 250 ml # Voids 4 1 Laboratory Tests Test 11/20/19 08:10 White Blood Count 8.6 K/UL (4.8-10.8) Red Blood Count 4.16 M/UL (4.20-5.40) L Hemoglobin 12.9 G/DL (12.0-16.0) Hematocrit 36.6 % (37.0-47.0) L Mean Corpuscular Volume 88 FL (80-99) Mean Corpuscular Hemoglobin 30.9 PG (27.0-31.0) Mean Corpuscular Hemoglobin Concent 35.1 G/DL (32.0-36.0) Red Cell Distribution Width 11.4 % (11.6-14.8) L Platelet Count 312 K/UL (150-450) Mean Platelet Volume 5.9 FL (6.5-10.1) L Neutrophils (%) (Auto) 68.0 % (45.0-75.0) Lymphocytes (%) (Auto) 23.8 % (20.0-45.0) Monocytes (%) (Auto) 5.8 % (1.0-10.0) Eosinophils (%) (Auto) 1.6 % (0.0-3.0) Basophils (%) (Auto) 0.8 % (0.0-2.0) Sodium Level 142 MMOL/L (136-145) Potassium Level 3.2 MMOL/L (3.5-5.1) L Chloride Level 109 MMOL/L (98-107) H Carbon Dioxide Level 24 MMOL/L (21-32) Anion Gap 9 mmol/L (5-15) Blood Urea Nitrogen 7 mg/dL (7-18) Creatinine 0.7 MG/DL (0.55-1.30) Estimat Glomerular Filtration Rate > 60 mL/min (>60) Glucose Level 117 MG/DL (74-106) H Calcium Level 8.3 MG/DL (8.5-10.1) L Phosphorus Level 2.4 MG/DL (2.5-4.9) L Magnesium Level 1.7 MG/DL (1.8-2.4) L Total Bilirubin 0.4 MG/DL (0.2-1.0) Aspartate Amino Transf (AST/SGOT) 13 U/L (15-37) L Alanine Aminotransferase (ALT/SGPT) 16 U/L (12-78) Alkaline Phosphatase 96 U/L (46-116) Total Protein 6.3 G/DL (6.4-8.2) L Albumin 3.1 G/DL (3.4-5.0) L Globulin 3.2 g/dL Albumin/Globulin Ratio 1.0 (1.0-2.7) Height (Feet): 5 Height (Inches): 2.00 Weight (Pounds): 128 Medications Current Medications Medications (Trade) Dose Ordered Sig/Raimundo Route PRN Reason Start Time Stop Time Status Last Admin Dose Admin Barium Sulfate (Readi-Cat 2) 450 ml NOW PRN ORAL Radiology Procedure 11/19/19 08:15 11/21/19 08:05 11/19/19 09:14 Dextrose/ Electrolytes 1,000 ml @ 75 mls/hr [id number] IV 11/20/19 16:00 12/20/19 15:59 Diphenhydramine HCl (Benadryl) 25 mg Q6H PRN IVP Itching 11/20/19 10:00 12/20/19 09:59 11/20/19 13:33 Enalaprilat (Vasotec) 2.5 mg Q6H PRN IV SBP>160 11/19/19 15:30 12/19/19 15:29 Hydralazine HCl (Apresoline) 25 mg Q6H PRN ORAL SBP >160 11/20/19 12:30 12/20/19 12:29 Iohexol (OMNIPAQUE-300 100ml) 100 ml NOW PRN INJ Radiology Procedure 11/19/19 08:15 11/21/19 08:05 Magnesium Sulfate 100 ml @ 100 mls/hr Q1H IVPB 11/20/19 12:45 11/20/19 14:44 11/20/19 12:43 Morphine Sulfate (Morphine Sulfate) 2 mg Q6H PRN IVP For Pain 11/20/19 10:00 11/27/19 09:59 11/20/19 13:32 Ondansetron HCl (Zofran) 4 mg Q6H PRN IVP Nausea & Vomiting 11/19/19 15:15 12/19/19 15:14 11/20/19 03:12 Pantoprazole (Protonix) 40 mg EVERY 12 HOURS IVP 11/19/19 21:00 12/19/19 20:59 11/20/19 08:14 Piperacillin Sod/ Tazobactam Sod 3.375 gm/Sodium Chloride 110 ml @ 27.5 mls/hr EVERY 8 HOURS IVPB 11/19/19 16:00 11/24/19 15:59 11/20/19 05:49 Polyethylene Glycol/ Electrolytes (Nulytely) 4,000 ml ONCE ORAL 11/20/19 14:00 11/20/19 23:59 Potassium Chloride (K-Dur) 40 meq ONCE ORAL 11/20/19 16:30 11/20/19 17:30 Sodium Chloride 1,000 ml @ 125 mls/hr Q8H IV 11/19/19 15:15 12/19/19 15:14 11/20/19 05:49 Assessment/Plan Problem List: (1) Rectal bleeding ICD Codes: K62.5 - Hemorrhage of anus and rectum SNOMED: [id number] (2) Diverticulitis Assessment & Plan: Lung bases: Mild dependent atelectasis in bilateral lung bases. ABDOMEN: Liver: Unremarkable. No suspicious parenchymal lesions Gallbladder and bile ducts: Unremarkable. No calcified stones. No ductal dilation. Pancreas: Unremarkable. No mass. No ductal dilation. Spleen: Unremarkable. No splenomegaly. Adrenals: Unremarkable. No mass. Kidneys and ureters: Unremarkable. No solid mass. No hydronephrosis. Stomach and bowel: Segmental wall thickening throughout the descending and sigmoid colon, suggesting infectious or inflammatory colitis or diverticulitis. Remainder of the colon appears unremarkable. No abnormally distended loops of small bowel. GE junction and stomach appear unremarkable. PELVIS: Appendix: The appendix appears normal. Bladder: Unremarkable. No visible stones. Reproductive: The uterus and ovaries are not visualized and may be surgically absent. ABDOMEN and PELVIS: Intraperitoneal space: Unremarkable. No free air. No significant fluid collection. Bones/joints: No acute fracture. No dislocation. Soft tissues: Unremarkable. Vasculature: Atherosclerosis throughout the abdominal aorta and its proximal branches. No abdominal aortic aneurysm. Lymph nodes: Unremarkable. No enlarged lymph nodes. IMPRESSION: Findings suggesting infectious or inflammatory colitis versus diverticulitis, with segmental wall thickening throughout the descending and sigmoid colon. Mild adjacent inflammatory stranding. No adjacent free air or fluid collection. No evidence of bowel obstruction. ICD Codes: K57.92 - Diverticulitis of intestine, part unspecified, without perforation or abscess without bleeding SNOMED: [id number] (3) Abdominal pain Assessment & Plan: This is a 63-year-old female who presented with few months of abdominal pain with acute worsening over the last 2 days nausea vomiting and blood in stool. CT noted. Admitted for the care management. Surgery called patient evaluated. Patient that she feels little bit better now. Currently no nausea fever chills. States she is hungry and wants to eat a little bit more than a liquid diet that she is on. On abdominal examination no acute findings currently. Soft nontender nondistended bowel sounds noted no significant discomfort on palpation at this time. Labs noted otherwise stable. No acute surgical intervention indicated recommended Okay for diet Plan for colonoscopy as per GI Antibiotics for colitis for his diverticulitis We will follow with recommendations and serial exams Thank you for let me participate in patient's care Sumeet Gomes Nov 20, 2019 14:15
[2019-11-20 16:00] VITALS: BP_SYST 121; BP_SYST 139; BP_DIAS 68
--- NOTE | 2019-11-20 16:15 | Consultation ---
DATE OF CONSULTATION: 11/20/2019 CHIEF COMPLAINT: 1. Abdominal pain. 2. Rectal bleeding. HISTORY OF PRESENT ILLNESS: The patient is a 63-year-old female who presented to the hospital with complaint of almost one week of abdominal pain with bloody diarrhea. According to the patient, she has been having chronic abdominal pain, but at this time it is different. She had some hemorrhoidal bleeding in the past, but this one is bright red blood per rectum and associated with abdominal pain, nausea, vomiting, weight loss, which is all new of her. She had endoscopy, colonoscopy over 10 years ago and she is due for one anyway. PAST MEDICAL HISTORY: Significant for: 1. History of borderline diabetes, diet controlled. 2. High blood pressure. PAST SURGICAL HISTORY: 1. History of . 2. Partial hysterectomy. ALLERGIES: To multiple allergies including Levaquin, ketorolac, morphine, tetracycline, aspirin, codeine. MEDICATIONS: Please see medication reconciliation list. SOCIAL HISTORY: The patient smokes marijuana. Denies any alcohol, tobacco abuse, or IV drug abuse. FAMILY HISTORY: Noncontributory. REVIEW OF SYSTEMS: A 10-point review of systems was performed and pertinent positives in HPI. PHYSICAL EXAMINATION: GENERAL: A well-developed female, in no acute distress. VITAL SIGNS: Temperature is 97.7, pulse 72, respirations 18, blood pressure is 100/65 HEENT: Normocephalic and atraumatic. Sclerae anicteric. NECK: Supple. No evidence of obvious lymphadenopathy. CARDIOVASCULAR: Regular rate and rhythm. Plus S1 and S2. LUNGS: Decreased breath sounds bilaterally based on the supine exam. ABDOMEN: Soft. Minimal tenderness to palpation in left lower quadrant. No rebound. No guarding. No peritoneal sign. EXTREMITIES: No cyanosis, no clubbing, no edema. LABORATORY AND DIAGNOSTIC DATA: White count 8.6, hemoglobin 12.9, platelet count 312. Imaging studies, the patient had a CT of the abdomen and pelvis done in the emergency room. CT was done with contrast showed evidence of colitis either infectious versus inflammatory, also diverticulosis. ASSESSMENT AND PLAN: This is a 63-year-old female with evidence of colitis on the CT, rectal bleeding, abdominal pain, vomiting, weight loss. The patient needs endoscopy and colonoscopy. The risks and benefits of procedure were explained to her. The patient agreed. Plan to prep her today for endoscopy and colonoscopy tomorrow. Meanwhile, we will monitor hemoglobin and hematocrit. Transfuse as needed to keep hemoglobin above 7, hydration, pain management, stool studies. I want to thank, Dr. Buckner, for this kind referral. Mario Salazar M.D. DR: Josiah JOB#: [id number] CC: Batsheva Buckner M.D.; Fax#: [phone]
--- NOTE | 2019-11-20 17:11 | General Progress Note ---
Assessment/Plan Assessment/Plan: #Infectious vs Inflammatory Colitis,w/ associated Hematochezia/Melena ( GI symptoms present for 2 months, bleeding present for 2 days) #Gastritis --> Patient on outpatient ppi Appreciate gastroenterology consultation EGD and colonoscopy tomorrow N.p.o. after midnight IV fluids Appreciate surgery consultation Zosyn Follow-up blood cultures Follow-up stool studies including C. difficile and fecal WBC Check ESR- normal #DMII--> not on home meds, controlled with diet Obtain A1c #Hypokalemia #Hypomagnesemia Replete PRN Full Liquid diet, avoid DVT ppx w/ concern for GIB Code status: Full 38 minutes spent on this encounter. Discussed with GI, surgery, and RN. > 50% spent on counseling and care coordination. I spent an additional 32 minutes reviewing medical records including prior hospitalization notes, clinic notes, consultation notes, prior labs, and prior imaging. Time of note may not reflect time patient was seen. Subjective Allergies: Coded Allergies: LEVOFLOXACIN (Verified Allergy, Mild, ANAPHYLAXIS, 10/18/16) KETOROLAC TROMETHAMINE (Verified Allergy, Unknown, 10/18/16) Pt received toradol (yesterday) in my care with absolutely no adverse reaction. - Jaber MORPHINE (Verified Allergy, Unknown, 10/18/16) TETRACYCLINE (Verified Allergy, Unknown, 10/18/16) ASPIRIN (Verified Adverse Reaction, Mild, GI UPSET, 05/19/15) CODEINE (Verified Adverse Reaction, Mild, GI UPSET, 05/19/15) Subjective No acute events overnight per nursing. No further signs of bleeding or melena. Plan for colonoscopy tomorrow. Potassium down to 3.2 today. Replacement ordered. Still having some intermittent lower abdominal pain. Denies dysuria. Overall feels better. Review of systems: Constitutional: Denies: chills, diaphoresis, fever, malaise, weakness, other HEENT: Denies: eye pain, blurred vision, tearing, double vision, ear pain, ear discharge, nose pain, nose congestion, throat pain, throat swelling, mouth pain , mouth swelling, Cardiovascular: Denies: chest pain, edema, lightheadedness, palpitations, syncope, Respiratory: Denies: cough, orthopnea, shortness of breath, SOB with excertion , SOB at rest, sputum, stridor, wheezing, other Gastrointestinal/Abdominal: See HPI. Denies nausea or vomiting. Genitourinary: Denies: burning, discharge, frequency, flank pain, hematuria, incontinence, pain, urgency, other Neurologic/Psychiatric: Denies: anxiety, depressed, emotional problems, headache, numbness, paresthesia, pre-existing deficit, seizure, tingling, tremors, weakness, other Endocrine: Denies: excessive sweating, flushing, intolerance to cold, intolerance to heat, increased hunger, increased thirst, increased urine, unexplained weight gain, unexplained weight loss, other MSK: denies joint pains, swelling, stiffness Hematologic/Lymphatic: Denies: anemia, easy bleeding, easy bruising, other Objective Last 24 Hour Vital Signs Date Time Temp Pulse Resp B/P (MAP) Pulse Ox O2 Delivery O2 Flow Rate FiO2 11/20/19 16:00 98.8 77 18 139/68 (91) 98 11/20/19 08:00 97.7 73 18 100/65 (77) 98 11/20/19 06:24 97.8 11/20/19 04:00 97.8 61 18 115/64 (81) 96 11/20/19 00:00 97.7 60 18 114/65 (81) 96 11/19/19 21:00 Room Air 11/19/19 20:00 97.9 67 18 113/70 (84) 98 Intake and Output 11/19/19 11/20/19 19:00 07:00 Intake Total 1000 ml 447.5 ml Output Total 250 ml Balance 1000 ml 197.5 ml Intake Oral 0 ml 240 ml IV Total 1000 ml 207.5 ml Output Urine Total 250 ml # Voids 4 1 Laboratory Tests 11/20/19 08:10: White Blood Count 8.6, Red Blood Count 4.16L, Hemoglobin 12.9, Hematocrit 36.6L , Mean Corpuscular Volume 88, Mean Corpuscular Hemoglobin 30.9, Mean Corpuscular Hemoglobin Concent 35.1, Red Cell Distribution Width 11.4L, Platelet Count 312, Mean Platelet Volume 5.9L, Neutrophils (%) (Auto) 68.0, Lymphocytes (%) (Auto) 23.8, Monocytes (%) (Auto) 5.8, Eosinophils (%) (Auto) 1.6, Basophils (%) (Auto) 0.8, Sodium Level 142, Potassium Level 3.2L, Chloride Level 109H, Carbon Dioxide Level 24, Anion Gap 9, Blood Urea Nitrogen 7, Creatinine 0.7, Estimat Glomerular Filtration Rate > 60, Glucose Level 117H, Calcium Level 8.3L, Phosphorus Level 2.4L, Magnesium Level 1.7L, Total Bilirubin 0.4, Aspartate Amino Transf (AST/SGOT) 13L, Alanine Aminotransferase ( ALT/SGPT) 16, Alkaline Phosphatase 96, Total Protein 6.3L, Albumin 3.1L, Globulin 3.2, Albumin/Globulin Ratio 1.0 Height (Feet): 5 Height (Inches): 2.00 Weight (Pounds): 128 Objective General: WDWN female in NAD, A&O x 4 HEENT: Normocephalic cephalic atraumatic, pupils equal round reactive to light and accommodation, nares patent and no symmetrical, no tonsillar exudates, mucous membranes moist CV: Regular rate regular rhythm, no murmurs, rubs, or gallops Pulm: Lungs clear to auscultation bilaterally. No wheezes, rhonchi, or rales GI: Soft, mild tenderness to palpation in lower abdomen, without rebound or guarding. Nondistended, bowel sounds present Neuro: CN 2-12 intact bilaterally, no focal signs. Ext: No lower extremity edema bilaterally Skin: no rashes lesions or ulcers Msk: Joints symmetrical in upper extremity and lower extremity bilaterally, no joint swelling. Lymph: No lymphadenopathy in upper extremity and lower extremity Ha Jay D.O. Nov 20, 2019 17:11
[2019-11-20] MEDS: D5 1/2NS w/KCl 20mEq 1,000 ML IV SCH (17:53)
--- NOTE | 2019-11-20 19:34 | NUR ---
CASE MANAGEMENT: REVIEW 63 YEAR OLD FEMALE PRESENTED TO ED FROM HOME CC: ABD PAIN . ABD CRAMPS . RECTAL BLEEDING X5 DAYS SI: DIVERTICULITIS . RECTAL BLEEDING T 97.5 HR 82 RR 19 BP 132/83 SAT 99% ROOM AIR CHLOR [address] ABD/PEL -- INFLAMMATORY COLITIS vs DIVERTICULITIS IS: NS IVF BOLUS X1 DILAUDID IV X1 FLAGYL IV X1 PEPCID IV X1 CEFEPIME IV X1 NPO EGD PENDING PATIENT ADMITTED TO MED/SURG UNIT 11/19/2019 DCP: PATIENT IS FROM HOME
--- NOTE | 2019-11-20 19:42 | NUR ---
HAND-OFF: Report given to chacha.
--- NOTE | 2019-11-20 19:44 | NUR ---
NURSE NOTES: Received patient in bed, awake, alert, oriented x 4, ambulatory, has bedside commode, IV site is clean dry and intact, will reenforce with patient to finish bowel prep and remind to stay NPO post midnight. IV site is clean dry and intact, no acute distress noted. Call light is within reach, bed is lowered, locked, alarm is on. Will continue to monitor for comfort and safety.
[2019-11-20 20:00] VITALS: BP 136/78
[2019-11-21] VITALS (11 sets, daily range): BP systolic 114–175; BP diastolic 64–95
[2019-11-21] MEDS: DiphenhydrAMINE 50mg/ml Inj IVP PRN ×4 (01:13→20:32)
[2019-11-21] MEDS: Morphine Sulfate 2mg/ml Inj(IV/IM USE ONLY) IVP PRN ×4 (01:13→20:32)
[2019-11-21] MEDS: D5 1/2NS w/KCl 20mEq 1,000 ML IV SCH ×2 (05:28→18:40)
[2019-11-21] MEDS: Piperacillin/Tazobactam 3.375 GM in NS 110 ML IVPB SCH ×3 (05:28→20:32)
--- NOTE | 2019-11-21 06:57 | NUR ---
HAND-OFF: Report given to Phyllis CONTRERAS.
[2019-11-21 07:27] LABS: BASOPHILS % (AUTO) 1.4 % (0.0-2.0); EOSINOPHILS % (AUTO) 2.9 % (0.0-3.0); HEMATOCRIT 39.9 % (37.0-47.0); HEMOGLOBIN 13.6 G/DL (12.0-16.0); LYMPHOCYTES % (AUTO) 32.6 % (20.0-45.0); MEAN CORPUSCULAR VOLUME 87 FL (80-99); MONOCYTES % (AUTO) 6.3 % (1.0-10.0); NEUTROPHILS % (AUTO) 56.8 % (45.0-75.0); PLATELET COUNT 328 K/UL (150-450); RED BLOOD COUNT 4.58 M/UL (4.20-5.40); RED CELL DISTRIBUTION WIDTH 11.2 % (11.6-14.8); WHITE BLOOD COUNT 7.5 K/UL (4.8-10.8)
--- NOTE | 2019-11-21 07:27 | NUR ---
NURSE NOTES: Received patient in bed awake. No SOB or acute distress. IV line intact and patent. Maintained on NPO for procedure. Instructed to collect stool sample, container given to patient. HOB elevated. Bed locked in lowest position. Call light within reach. Will continue plan of care.
[2019-11-21 07:29] LABS: ANION GAP 8 mmol/L (5-15); BLOOD UREA NITROGEN 7 mg/dL (7-18); CARBON DIOXIDE 25 MMOL/L (21-32); CHLORIDE 108 MMOL/L (98-107); CREATININE 0.7 MG/DL (0.55-1.30); POTASSIUM 4.3 MMOL/L (3.5-5.1); SODIUM 141 MMOL/L (136-145)
[2019-11-21] MEDS: Pantoprazole Inj IVP SCH ×2 (08:07→20:31)
[2019-11-21 08:15] LABS: PHOSPHORUS 2.3 MG/DL (2.5-4.9)
--- NOTE | 2019-11-21 11:19 | Anethesia Preoperative Eval ---
Anesthesia Pre-op PMH/ROS General Date of Evaluation: Nov 21, 2019 Anesthesiologist: Joon ASA Score: ASA 2 Mallampati Score Class I : Soft palate, uvula, fauces, pillars visible Class II: Soft palate, uvula, fauces visible Class III: Soft palate, base of uvula visible Class IV: Only hard plate visible Mallampati Classification: Class II Surgeon: Martin Diagnosis: hematochezia Surgical Procedure: EGD and coloonoscopy Anesthesia History: none Family History: no anesthesia problems Allergies: Coded Allergies: LEVOFLOXACIN (Verified Allergy, Mild, ANAPHYLAXIS, 10/18/16) KETOROLAC TROMETHAMINE (Verified Allergy, Unknown, 10/18/16) Pt received toradol (yesterday) in my care with absolutely no adverse reaction. - Jaber TETRACYCLINE (Verified Allergy, Unknown, 10/18/16) Medications: see eMAR Patient NPO?: Yes NPO Date: Nov 21, 2019 NPO Time: 00:00 Past Medical History Cardiovascular: Reports: other - HLD; Denies: HTN, CAD, LA, valve dz, arrhythmia Pulmonary: Reports: asthma; Denies: COPD, PHIL, other Gastrointestinal/Genitourinary: Denies: GERD, CRI, ESRD, other Neurologic/Psychiatric: Denies: dementia, CVA, depression/anxiety, TIA, other Endocrine: Reports: DM - pre-DM; Denies: hypothyroidism, steroids, other HEENT: Denies: cataract (L), cataract (R), glaucoma, MOHEGAN (L), MOHEGAN (R), other Hematology/Immune: Denies: anemia, DVT, bleeding disorder, other Musculoskeletal/Integumentary: Denies: OA, RA, DJD, DDD, edema, other PSxH Narrative: partial hysterectromy Anesthesia Pre-op Phys. Exam Physician Exam Last Vital Signs Date Time Temp Pulse Resp B/P (MAP) Pulse Ox O2 Delivery O2 Flow Rate FiO2 11/21/19 08:00 97.9 67 18 133/69 (90) 93 11/20/19 21:19 Room Air Constitutional: NAD Cardiovascular: RRR Respiratory: CTA Airway Exam Mallampati Score: Class II MO: full ROM: full Anesthesia Pre-op A/P Labs Hematology Test 11/21/19 06:50 White Blood Count 7.5 K/UL (4.8-10.8) Red Blood Count 4.58 M/UL (4.20-5.40) Hemoglobin 13.6 G/DL (12.0-16.0) Hematocrit 39.9 % (37.0-47.0) Mean Corpuscular Volume 87 FL (80-99) Mean Corpuscular Hemoglobin 29.7 PG (27.0-31.0) Mean Corpuscular Hemoglobin Concent 34.1 G/DL (32.0-36.0) Red Cell Distribution Width 11.2 % (11.6-14.8) L Platelet Count 328 K/UL (150-450) Mean Platelet Volume 5.9 FL (6.5-10.1) L Neutrophils (%) (Auto) 56.8 % (45.0-75.0) Lymphocytes (%) (Auto) 32.6 % (20.0-45.0) Monocytes (%) (Auto) 6.3 % (1.0-10.0) Eosinophils (%) (Auto) 2.9 % (0.0-3.0) Basophils (%) (Auto) 1.4 % (0.0-2.0) Chemistry Test 11/21/19 06:50 Sodium Level 141 MMOL/L (136-145) Potassium Level 4.3 MMOL/L (3.5-5.1) Chloride Level 108 MMOL/L (98-107) H Carbon Dioxide Level 25 MMOL/L (21-32) Anion Gap 8 mmol/L (5-15) Blood Urea Nitrogen 7 mg/dL (7-18) Creatinine 0.7 MG/DL (0.55-1.30) Estimat Glomerular Filtration Rate > 60 mL/min (>60) Glucose Level 97 MG/DL (74-106) Calcium Level 9.0 MG/DL (8.5-10.1) Phosphorus Level 2.3 MG/DL (2.5-4.9) L Magnesium Level 2.2 MG/DL (1.8-2.4) Studies Pre-op Studies: EKG - sr Risk Assessment & Plan Assessment: ASA II Plan: MAC Status Change Before Surgery: No Pre-Antibiotics Drug: N/A Aliyah Grace MD Nov 21, 2019 11:19
[2019-11-21] MEDS ORDERED: LR 1000ml 1,000 ML IVLG SCH (11:26)
[2019-11-21] MEDS ORDERED: DiphenhydrAMINE 50mg/ml Inj IVP PRN (11:30)
--- NOTE | 2019-11-21 12:15 | NUR ---
NURSE NOTES: Patient transported for procedure.
--- NOTE | 2019-11-21 12:23 | Surgery Progress Note ---
Surgery Progress Note Subjective Symptoms: improved Additional Comments pending colonoscopy Objective Last 24 Hour Vital Signs Date Time Temp Pulse Resp B/P (MAP) Pulse Ox O2 Delivery O2 Flow Rate FiO2 11/21/19 09:00 Room Air 11/21/19 09:00 Room Air 11/21/19 08:00 97.9 67 18 133/69 (90) 93 11/21/19 04:00 98.0 73 19 130/75 (93) 97 11/21/19 01:46 98.7 11/21/19 00:00 98.7 82 19 130/74 (92) 98 11/20/19 21:19 Room Air 11/20/19 20:00 99.0 74 19 136/78 (97) 97 11/20/19 16:00 98.8 77 18 139/68 (91) 98 I&O Intake and Output 11/20/19 11/21/19 19:00 07:00 Intake Total 580 ml Balance 580 ml Intake Oral 580 ml # Voids 5 Cardiovascular: RSR Respiratory: clear Abdomen: soft, flat, non-tender, present bowel sounds, non-distended Extremities: no tenderness, no cyanosis Laboratory Tests Test 11/21/19 06:50 White Blood Count 7.5 K/UL (4.8-10.8) Red Blood Count 4.58 M/UL (4.20-5.40) Hemoglobin 13.6 G/DL (12.0-16.0) Hematocrit 39.9 % (37.0-47.0) Mean Corpuscular Volume 87 FL (80-99) Mean Corpuscular Hemoglobin 29.7 PG (27.0-31.0) Mean Corpuscular Hemoglobin Concent 34.1 G/DL (32.0-36.0) Red Cell Distribution Width 11.2 % (11.6-14.8) L Platelet Count 328 K/UL (150-450) Mean Platelet Volume 5.9 FL (6.5-10.1) L Neutrophils (%) (Auto) 56.8 % (45.0-75.0) Lymphocytes (%) (Auto) 32.6 % (20.0-45.0) Monocytes (%) (Auto) 6.3 % (1.0-10.0) Eosinophils (%) (Auto) 2.9 % (0.0-3.0) Basophils (%) (Auto) 1.4 % (0.0-2.0) Sodium Level 141 MMOL/L (136-145) Potassium Level 4.3 MMOL/L (3.5-5.1) Chloride Level 108 MMOL/L (98-107) H Carbon Dioxide Level 25 MMOL/L (21-32) Anion Gap 8 mmol/L (5-15) Blood Urea Nitrogen 7 mg/dL (7-18) Creatinine 0.7 MG/DL (0.55-1.30) Estimat Glomerular Filtration Rate > 60 mL/min (>60) Glucose Level 97 MG/DL (74-106) Calcium Level 9.0 MG/DL (8.5-10.1) Phosphorus Level 2.3 MG/DL (2.5-4.9) L Magnesium Level 2.2 MG/DL (1.8-2.4) Plan Problems: (1) Rectal bleeding (2) Diverticulitis Assessment & Plan: Lung bases: Mild dependent atelectasis in bilateral lung bases. ABDOMEN: Liver: Unremarkable. No suspicious parenchymal lesions Gallbladder and bile ducts: Unremarkable. No calcified stones. No ductal dilation. Pancreas: Unremarkable. No mass. No ductal dilation. Spleen: Unremarkable. No splenomegaly. Adrenals: Unremarkable. No mass. Kidneys and ureters: Unremarkable. No solid mass. No hydronephrosis. Stomach and bowel: Segmental wall thickening throughout the descending and sigmoid colon, suggesting infectious or inflammatory colitis or diverticulitis. Remainder of the colon appears unremarkable. No abnormally distended loops of small bowel. GE junction and stomach appear unremarkable. PELVIS: Appendix: The appendix appears normal. Bladder: Unremarkable. No visible stones. Reproductive: The uterus and ovaries are not visualized and may be surgically absent. ABDOMEN and PELVIS: Intraperitoneal space: Unremarkable. No free air. No significant fluid collection. Bones/joints: No acute fracture. No dislocation. Soft tissues: Unremarkable. Vasculature: Atherosclerosis throughout the abdominal aorta and its proximal branches. No abdominal aortic aneurysm. Lymph nodes: Unremarkable. No enlarged lymph nodes. IMPRESSION: Findings suggesting infectious or inflammatory colitis versus diverticulitis, with segmental wall thickening throughout the descending and sigmoid colon. Mild adjacent inflammatory stranding. No adjacent free air or fluid collection. No evidence of bowel obstruction. (3) Abdominal pain Assessment & Plan: This is a 63-year-old female who presented with few months of abdominal pain with acute worsening over the last 2 days nausea vomiting and blood in stool. CT noted. Admitted for the care management. Surgery called patient evaluated. Patient that she feels little bit better now. Currently no nausea fever chills. States she is hungry and wants to eat a little bit more than a liquid diet that she is on. On abdominal examination no acute findings currently. Soft nontender nondistended bowel sounds noted no significant discomfort on palpation at this time. Labs noted otherwise stable. No acute surgical intervention indicated recommended Okay for diet Plan for colonoscopy as per GI Antibiotics for colitis for his diverticulitis We will follow with recommendations and serial exams Thank you for let me participate in patient's care Sumeet Gomes Nov 21, 2019 12:23
[2019-11-21] MEDS ORDERED: Lidocaine 1% MPF 10mg/ml 5ml ONE (12:30)
[2019-11-21] MEDS ORDERED: LR 1000ml ONE (12:30)
[2019-11-21] MEDS ORDERED: Propofol 200mg/20ml IV ONE (12:30)
--- NOTE | 2019-11-21 12:30 | Pre-Procedure Note/Attestation ---
Pre-Procedure Note/Attestation Complete Prior to Procedure Planned Procedure: not applicable Procedure Narrative: esophagogastroduodenoscopy and colonoscopy Indications for Procedure Pre-Operative Diagnosis: anemia Attestation I attest that I discussed the nature of the procedure; its benefits; risks and complications; and alternatives (and the risks and benefits of such alternatives ), prior to the procedure, with the patient (or the patient's legal manufacturer's service representative). I attest that, if there was a reasonable possibility of needing a blood transfusion, the patient (or the patient's legal manufacturer's service representative) was given the [facility] standardized written summary, pursuant to the Kartik Arun Blood Safety Act ([place] Health and Safety Code # 1645, as amended). I attest that I re-evaluated the patient just prior to the surgery and that there has been no change in the patient's H&P, except as documented below: Mario Salazar MD Nov 21, 2019 12:30
[2019-11-21] MEDS ORDERED: NS 500ML IVPB ONE (12:37)
[2019-11-21] MEDS ORDERED: Sodium Phosphate 15 MM in NS 275 ML IVPB ONE (13:00)
--- NOTE | 2019-11-21 13:11 | Endoscopy Procedure Note ---
Endoscopy Procedure Note General Indication for Procedure: anemia Procedures Performed: EGD, colonoscopy Operative Findings/Diagnosis: diverticulosis, gastritis Specimen: yes Pt Tolerated Procedure Well: Yes Estimated Blood Loss: none Anesthesia Anesthesiologist: meera Anesthesia: MAC Inserted Devices Implant(s) used?: No GI Core Measures 50 yrs or older w/o bx or poly: Not Applicable 10yrs. F/U recommended: Not Applicable Mario Salazar MD Nov 21, 2019 13:11
--- NOTE | 2019-11-21 13:21 | Immediate Post-Op Evaluation ---
Immediate Post-Op Evalulation Immediate Post-Op Evalulation Procedure: EGd and colonoscopy Date of Evaluation: Nov 21, 2019 Time of Evaluation: 13:23 IV Fluids: 300 Blood Products: 0 Estimated Blood Loss: 0 Urinary Output: 0 Blood Pressure Systolic: 159 Blood Pressure Diastolic: 90 Pulse Rate: 77 Respiratory Rate: 16 O2 Sat by Pulse Oximetry: 100 Temperature (Fahrenheit): 97.9 Pain Score (1-10): 0 Nausea: No Vomiting: No Complications 0 Patient Status: awake, reacts, patent, none Hydration Status: adequate Drug: N/A Aliyah Grace MD Nov 21, 2019 13:21
--- NOTE | 2019-11-21 13:22 | 48 Hour Post Anesthesia Eval ---
Post Anesthesia Evaluation Procedure: EGd and colonoscopy Date of Evaluation: Nov 21, 2019 Airway: patent Nausea: No Vomiting: No Pain Intensity: 0 Hydration Status: adequate Cardiopulmonary Status: at baseline Mental Status/LOC: patient returned to baseline Post-Anesthesia Complications: 0 Follow-up care needed: N/A - further care as per primary team Aliyah Grace MD Nov 21, 2019 13:22
--- NOTE | 2019-11-21 14:00 | NUR ---
NURSE NOTES: Patient back on unit.
[2019-11-21] MEDS ORDERED: Tubing IV Secondary IV ONE (18:33)
[2019-11-21] MEDS ORDERED: NS 275ml ONE (18:33)
--- NOTE | 2019-11-21 19:30 | NUR ---
NURSE NOTES: Morphine and benadryl increased frequency as ordered.
--- NOTE | 2019-11-21 19:44 | NUR ---
HAND-OFF: Report given to
--- NOTE | 2019-11-21 20:00 | General Progress Note ---
Assessment/Plan Assessment/Plan: #Infectious vs Inflammatory Colitis,w/ associated Hematochezia/Melena ( GI symptoms present for 2 months, bleeding present for 2 days) #Gastritis --> Patient on outpatient ppi Appreciate gastroenterology consultation EGD and colonoscopy today. Await results IV fluids Appreciate surgery consultation Zosyn Follow-up blood cultures Follow-up stool studies including C. difficile and fecal WBC Check ESR- normal #DMII--> not on home meds, controlled with diet Obtain A1c. 5.9 -Fasting sugars normal. No need to check while hospitalized #Hypokalemia #Hypomagnesemia #hypophosphatemia Replete PRN Full Liquid diet, avoid DVT ppx w/ concern for GIB Code status: Full 37 minutes spent on this encounter. Discussed with GI, surgery, and RN. > 50% spent on counseling and care coordination. Time of note may not reflect time patient was seen. Subjective Allergies: Coded Allergies: LEVOFLOXACIN (Verified Allergy, Mild, ANAPHYLAXIS, 10/18/16) KETOROLAC TROMETHAMINE (Verified Allergy, Unknown, 10/18/16) Pt received toradol (yesterday) in my care with absolutely no adverse reaction. - Jaber TETRACYCLINE (Verified Allergy, Unknown, 10/18/16) Subjective No acute events overnight per nursing. No further signs of bleeding or melena. N.p.o. for EGD colonoscopy today. Procedure went well. Still complaining of lower abdominal pain. Stable. Unchanged. Denies dysuria. Overall feels better. Review of systems: As of 11/21/19 Constitutional: Denies: chills, diaphoresis, fever, malaise, weakness, other HEENT: Denies: eye pain, blurred vision, tearing, double vision, ear pain, ear discharge, nose pain, nose congestion, throat pain, throat swelling, mouth pain , mouth swelling, Cardiovascular: Denies: chest pain, edema, lightheadedness, palpitations, syncope, Respiratory: Denies: cough, orthopnea, shortness of breath, SOB with excertion , SOB at rest, sputum, stridor, wheezing, other Gastrointestinal/Abdominal: See HPI. Denies nausea or vomiting. Genitourinary: Denies: burning, discharge, frequency, flank pain, hematuria, incontinence, pain, urgency, other Neurologic/Psychiatric: Denies: anxiety, depressed, emotional problems, headache, numbness, paresthesia, pre-existing deficit, seizure, tingling, tremors, weakness, other Endocrine: Denies: excessive sweating, flushing, intolerance to cold, intolerance to heat, increased hunger, increased thirst, increased urine, unexplained weight gain, unexplained weight loss, other MSK: denies joint pains, swelling, stiffness Hematologic/Lymphatic: Denies: anemia, easy bleeding, easy bruising, other Objective Last 24 Hour Vital Signs Date Time Temp Pulse Resp B/P (MAP) Pulse Ox O2 Delivery O2 Flow Rate FiO2 11/21/19 16:00 98.6 69 18 115/78 (90) 96 11/21/19 13:45 98.0 62 23 136/85 100 Nasal Cannula 3 11/21/19 13:37 60 22 131/86 100 Nasal Cannula 3 11/21/19 13:27 65 23 149/92 100 Nasal Cannula 3 11/21/19 13:22 76 14 175/95 100 Nasal Cannula 3 11/21/19 13:21 77 16 100 11/21/19 13:17 97.9 77 16 159/90 100 Nasal Cannula 3 11/21/19 12:00 98.3 64 18 125/75 (92) 95 11/21/19 09:00 Room Air 11/21/19 09:00 Room Air 11/21/19 08:00 97.9 67 18 133/69 (90) 93 11/21/19 04:00 98.0 73 19 130/75 (93) 97 11/21/19 01:46 98.7 11/21/19 00:00 98.7 82 19 130/74 (92) 98 11/20/19 21:19 Room Air 11/20/19 20:00 99.0 74 19 136/78 (97) 97 Intake and Output 11/20/19 11/21/19 19:00 07:00 Intake Total 580 ml Balance 580 ml Intake Oral 580 ml # Voids 5 Laboratory Tests 11/21/19 06:50: White Blood Count 7.5, Red Blood Count 4.58, Hemoglobin 13.6, Hematocrit 39.9, Mean Corpuscular Volume 87, Mean Corpuscular Hemoglobin 29.7, Mean Corpuscular Hemoglobin Concent 34.1, Red Cell Distribution Width 11.2L, Platelet Count 328, Mean Platelet Volume 5.9L, Neutrophils (%) (Auto) 56.8, Lymphocytes (%) (Auto) 32.6, Monocytes (%) (Auto) 6.3, Eosinophils (%) (Auto) 2.9, Basophils (%) (Auto ) 1.4, Sodium Level 141, Potassium Level 4.3, Chloride Level 108H, Carbon Dioxide Level 25, Anion Gap 8, Blood Urea Nitrogen 7, Creatinine 0.7, Estimat Glomerular Filtration Rate > 60, Glucose Level 97, Calcium Level 9.0, Phosphorus Level 2.3L, Magnesium Level 2.2 Height (Feet): 5 Height (Inches): 2.00 Weight (Pounds): 128 Objective General: WDWN female in NAD, A&O x 4 HEENT: Normocephalic cephalic atraumatic, pupils equal round reactive to light and accommodation, nares patent and no symmetrical, no tonsillar exudates, mucous membranes moist CV: Regular rate regular rhythm, no murmurs, rubs, or gallops Pulm: Lungs clear to auscultation bilaterally. No wheezes, rhonchi, or rales GI: Soft, mild tenderness to palpation in lower abdomen (stable), without rebound or guarding. Nondistended, bowel sounds present Neuro: CN 2-12 intact bilaterally, no focal signs. Ext: No lower extremity edema bilaterally Skin: no rashes lesions or ulcers Msk: Joints symmetrical in upper extremity and lower extremity bilaterally, no joint swelling. Lymph: No lymphadenopathy in upper extremity and lower extremity Ha Jay D.O. Nov 21, 2019 20:00
--- NOTE | 2019-11-21 20:06 | NUR ---
NURSE NOTES: Received patient awake, alert, verbal, resting in bed, comfortable.
--- NOTE | 2019-11-21 20:45 | Procedure Note ---
DATE OF PROCEDURE: 11/21/2019 SURGEON: Mario Salazar MD PROCEDURE: 1. Upper endoscopy with biopsy. 2. Colonoscopy with biopsy. ANESTHESIA: Per Dr. Dupree. INSTRUMENT: Olympus upper endoscope and colonoscope. INDICATION: Anemia. REASON FOR PROCEDURE: The procedure, risks, benefits, and possible consequences, including hemorrhage, aspiration, perforation and infection, and alternative treatments, were explained to the patient/legal guardian by Dr. Mario Salazar and the patient/legal guardian understood and accepted these risks. DESCRIPTION OF PROCEDURE: After informed consent was obtained and the patient was adequately sedated, Olympus upper endoscope was advanced from mouth into the second portion of the duodenum and retroflexion was performed in the stomach. The patient has evidence of diffuse gastritis. Random biopsy from antrum was obtained to rule out H. pylori infection. Otherwise, the rest of the upper endoscopic examination grossly within normal limits. At this time, the upper endoscope was retrieved. The patient was turned over for colonoscopy. First, rectal examination was performed, which was positive for internal hemorrhoids. Then, the scope was advanced from the rectum into the cecum documented by the appendix orifice, ileocecal valve, and right upper quadrant palpation. Quality of prep was very good. The patient had some difficult colonoscopy, very torturous, but we were able to get into the cecum. The patient had evidence of diverticulosis in the left colon without any obvious diverticulitis. There was a few hyperplastic looking polyps in the rectosigmoid area removed with cold biopsy forceps technique. In the area of the cecum, there was nonspecific inflammation, which was biopsied to rule out colitis. Retroflexion of rectum showed evidence of medium-sized internal hemorrhoids. SUMMARY OF FINDINGS: 1. Gastritis, status post biopsy. 2. Diverticulosis. 3. Two colonic polyps removed from the rectosigmoid area. See above for details. 4. Nonspecific colitis in the left colon. 5. Internal hemorrhoids. RECOMMENDATIONS: Follow up biopsy results and treat accordingly. I want to thank, Dr. Buckner, for this kind referral. Mario Salazar M.D. DR: WILFREDO JOB#: [id number] CC: Batsheva Buckner M.D.; Fax#: [phone]
[2019-11-22] VITALS (7 sets, daily range): BP systolic 104–118; BP diastolic 66–80
[2019-11-22] MEDS: Morphine Sulfate 2mg/ml Inj(IV/IM USE ONLY) IVP PRN ×6 (00:37→21:34)
[2019-11-22] MEDS: DiphenhydrAMINE 50mg/ml Inj IVP PRN ×6 (00:37→21:34)
[2019-11-22] MEDS: Piperacillin/Tazobactam 3.375 GM in NS 110 ML IVPB SCH ×3 (04:32→21:33)
--- NOTE | 2019-11-22 07:17 | NUR ---
HAND-OFF: Report given to Howard Clark RN.
--- NOTE | 2019-11-22 07:18 | NUR ---
NURSE NOTES: received report from DIANE Rangel. patient in bed. alert. oriented. verbally responsive. no respiratory distress noted. c/o discomfort on abd at this time. IV on RH 22 running D51/2ns@75, LFA 22 saline lock. contact isolation. PPE at all times. bed in the lowest position and locked. call light within reach. will continue to provide plan of care.
[2019-11-22 07:23] LABS: EOSINOPHILS % (AUTO) 3.5 % (0.0-3.0); HEMATOCRIT 39.7 % (37.0-47.0); HEMOGLOBIN 13.6 G/DL (12.0-16.0); LYMPHOCYTES % (AUTO) 29.8 % (20.0-45.0); MEAN CORPUSCULAR VOLUME 87 FL (80-99); MONOCYTES % (AUTO) 5.6 % (1.0-10.0); NEUTROPHILS % (AUTO) 60.1 % (45.0-75.0); PLATELET COUNT 329 K/UL (150-450); RED BLOOD COUNT 4.55 M/UL (4.20-5.40); RED CELL DISTRIBUTION WIDTH 11.4 % (11.6-14.8); WHITE BLOOD COUNT 7.8 K/UL (4.8-10.8)
[2019-11-22 07:26] LABS: ANION GAP 12 mmol/L (5-15); BLOOD UREA NITROGEN 10 mg/dL (7-18); CALCIUM 8.7 MG/DL (8.5-10.1); CARBON DIOXIDE 23 MMOL/L (21-32); CHLORIDE 107 MMOL/L (98-107); CREATININE 0.8 MG/DL (0.55-1.30); PHOSPHORUS 3.6 MG/DL (2.5-4.9); POTASSIUM 4.1 MMOL/L (3.5-5.1); SODIUM 142 MMOL/L (136-145)
[2019-11-22] MEDS: Pantoprazole Inj IVP SCH ×2 (08:52→21:33)
[2019-11-22] MEDS: D5 1/2NS w/KCl 20mEq 1,000 ML IV SCH (09:08)
--- NOTE | 2019-11-22 11:43 | GI Progress Note ---
Assessment/Plan Problems: (1) Abdominal pain ICD Codes: R10.9 - Abdominal pain SNOMED: [id number] Status: stable Status Narrative Discussed with Dr. Salazar. Assessment/Plan s/p EGD/colonoscopy SUMMARY OF FINDINGS: 1. Gastritis, status post biopsy. 2. Diverticulosis. 3. Two colonic polyps removed from the rectosigmoid area. 4. Nonspecific colitis in the left colon. 5. Internal hemorrhoids. RECOMMENDATIONS: dc planning advance diet Follow up biopsy results and treat accordingly. The patient was seen and examined at bedside and all new and available data was reviewed in the patients chart. I agree with the above findings, impression and plan. (Patient seen earlier today. Signature stamp does not reflect patient encounter time.). - Mario Salazar MD Subjective Gastrointestinal/Abdominal: Reports: no symptoms Objective Last 24 Hour Vital Signs Date Time Temp Pulse Resp B/P (MAP) Pulse Ox O2 Delivery O2 Flow Rate FiO2 11/22/19 09:00 Room Air 11/22/19 08:00 98.6 74 18 107/69 (82) 99 11/22/19 05:25 98.0 11/22/19 04:15 98.0 80 20 118/80 (93) 98 11/22/19 00:22 97.9 67 18 109/66 (80) 97 11/21/19 20:45 98.2 67 18 114/64 (81) 96 11/21/19 20:09 Room Air 11/21/19 16:00 98.6 69 18 115/78 (90) 96 11/21/19 13:45 98.0 62 23 136/85 100 Nasal Cannula 3 11/21/19 13:37 60 22 131/86 100 Nasal Cannula 3 11/21/19 13:27 65 23 149/92 100 Nasal Cannula 3 11/21/19 13:22 76 14 175/95 100 Nasal Cannula 3 11/21/19 13:21 77 16 100 11/21/19 13:17 97.9 77 16 159/90 100 Nasal Cannula 3 11/21/19 12:00 98.3 64 18 125/75 (92) 95 Intake and Output 11/21/19 11/22/19 19:00 07:00 Intake Total 835.0 ml 1465.0 ml Balance 835.0 ml 1465.0 ml Intake Oral 400 ml IV Total 835.0 ml 1065.0 ml # Voids 3 # Bowel Movements 3 Laboratory Tests Test 11/22/19 04:46 White Blood Count 7.8 K/UL (4.8-10.8) Red Blood Count 4.55 M/UL (4.20-5.40) Hemoglobin 13.6 G/DL (12.0-16.0) Hematocrit 39.7 % (37.0-47.0) Mean Corpuscular Volume 87 FL (80-99) Mean Corpuscular Hemoglobin 29.9 PG (27.0-31.0) Mean Corpuscular Hemoglobin Concent 34.2 G/DL (32.0-36.0) Red Cell Distribution Width 11.4 % (11.6-14.8) L Platelet Count 329 K/UL (150-450) Mean Platelet Volume 5.8 FL (6.5-10.1) L Neutrophils (%) (Auto) 60.1 % (45.0-75.0) Lymphocytes (%) (Auto) 29.8 % (20.0-45.0) Monocytes (%) (Auto) 5.6 % (1.0-10.0) Eosinophils (%) (Auto) 3.5 % (0.0-3.0) H Basophils (%) (Auto) 1.0 % (0.0-2.0) Sodium Level 142 MMOL/L (136-145) Potassium Level 4.1 MMOL/L (3.5-5.1) Chloride Level 107 MMOL/L (98-107) Carbon Dioxide Level 23 MMOL/L (21-32) Anion Gap 12 mmol/L (5-15) Blood Urea Nitrogen 10 mg/dL (7-18) Creatinine 0.8 MG/DL (0.55-1.30) Estimat Glomerular Filtration Rate > 60 mL/min (>60) Glucose Level 90 MG/DL (74-106) Calcium Level 8.7 MG/DL (8.5-10.1) Phosphorus Level 3.6 MG/DL (2.5-4.9) Magnesium Level 1.8 MG/DL (1.8-2.4) Height (Feet): 5 Height (Inches): 2.00 Weight (Pounds): 136 General Appearance: WD/WN, no apparent distress, alert Cardiovascular: normal rate Respiratory/Chest: normal breath sounds, no respiratory distress Abdominal Exam: normal bowel sounds, non tender, soft Extremities: normal range of motion, non-tender Fatoumata Loo NP Nov 22, 2019 11:43
[2019-11-22] MEDS: Simethicone 80mg tab ORAL SCH ×3 (13:00→21:33)
--- NOTE | 2019-11-22 13:17 | NUR ---
CASE MANAGEMENT:REVIEW SI;GASTRITIS. DIVERTICULOSIS. NON-SPECIFIC COLITIS. 98.6 86 20 107/69 97% ON RA IS;IVF LR @ 75 ML/HR MORPHINE SULF IVP Q4 HRS ZOSYN IV Q8 HRS PROTONIX IVP Q12 HRS ZOFRAN IVP Q6 HRS PRN MED SURG STATUS PLAN; FOLLOW UP BIOPSY RESULTS DC PLANNING DCP;FROM HOME
--- NOTE | 2019-11-22 13:40 | NUR ---
NURSE NOTES: patient complained the morphine 2mg q4hrs for pain works only 30mins. notified [employer] Stephon and no new order for now.
[2019-11-22] MEDS: LR 1000ml 1,000 ML IV SCH (13:41)
[2019-11-22 17:59] LABS: BILIRUBIN, URINE NEGATIVE (NEGATIVE); COLOR,URINE PALE YELLOW; GLUCOSE, URINE (UA) NEGATIVE (NEGATIVE); KETONES,URINE NEGATIVE (NEGATIVE); LEUKOCYTE ESTERASE ,URINE NEGATIVE (NEGATIVE); NITRITE,URINE NEGATIVE (NEGATIVE); PH,URINE 6 (4.5-8.0); PROTEIN,URINE NEGATIVE (NEGATIVE); UROBILINOGEN,URINE NORMAL MG/DL (0.0-1.0)
[2019-11-22 18:01] LABS: APPEARANCE,URINE SLIGHTLY CLOUDY
--- NOTE | 2019-11-22 19:05 | NUR ---
HAND-OFF: Report given to DIANE Rangel.
--- NOTE | 2019-11-22 19:48 | NUR ---
NURSE NOTES: Received patient awake, alert, verbal, resting in bed, comfortable, relatives at bedside.
--- NOTE | 2019-11-22 19:52 | General Progress Note ---
Assessment/Plan Status: stable Assessment/Plan: #Infectious vs Inflammatory Colitis,w/ associated Hematochezia/Melena ( GI symptoms present for 2 months, bleeding present for 2 days) #Gastritis --> Patient on outpatient ppi Appreciate gastroenterology consultation EGD and colonoscopy today. Await results IV fluids- Continue Appreciate surgery consultation Zosyn Follow-up blood cultures Follow-up stool studies including C. difficile and fecal WBC Check ESR- normal Continue to monitor patient's p.o. intake. Currently not eating well. #Microscopic hematuria Urology consult: Dr. Ball Can follow-up as an outpatient for cystoscopy #Suspected urinary retention Check postvoid residuals Paredes catheter if indicated Discussed with urology Could be etiology of patient's abdominal pain? #DMII--> not on home meds, controlled with diet Obtain A1c. 5.9 -Fasting sugars normal. No need to check while hospitalized #Hypokalemia #Hypomagnesemia #hypophosphatemia Replete PRN FENPPX DVTPPX: SCDs GI PPX: Protonix Fluids: As above Diet: Regular Lines: None PT/OT: Not needed patient is ambulatory at baseline Code status: Full Dispo: 1 to 2 days Reason for Continued Hospitalization: Abdominal pain 39 minutes spent on this encounter. Discussed with GI, surgery, Urology, and RN. > 50% spent on counseling and care coordination. Time of note may not reflect time patient was seen. Subjective Date patient seen: Nov 23, 2019 Allergies: Coded Allergies: LEVOFLOXACIN (Verified Allergy, Mild, ANAPHYLAXIS, 10/18/16) KETOROLAC TROMETHAMINE (Verified Allergy, Unknown, 10/18/16) Pt received toradol (yesterday) in my care with absolutely no adverse reaction. - Jaber TETRACYCLINE (Verified Allergy, Unknown, 10/18/16) Subjective No acute events overnight per nursing. No further signs of bleeding or melena. EGD and colonoscopy were negative. Follow-up on biopsy results. Patient continues to complain of lower abdominal pain and back pain. She states that she is had some right hip pain groin eating into her groin as well. She denies any history of bladder cancer or family history of bladder cancer. Denies dysuria. Overall feels better but still not feeling very good and not eating well. Review of systems: As of 11/22/19 Constitutional: Denies: chills, diaphoresis, fever, malaise, weakness, other HEENT: Denies: eye pain, blurred vision, tearing, double vision, ear pain, ear discharge, nose pain, nose congestion, throat pain, throat swelling, mouth pain , mouth swelling, Cardiovascular: Denies: chest pain, edema, lightheadedness, palpitations, syncope, Respiratory: Denies: cough, orthopnea, shortness of breath, SOB with excertion , SOB at rest, sputum, stridor, wheezing, other Gastrointestinal/Abdominal: See HPI. Denies nausea or vomiting. Genitourinary: Denies: burning, discharge, frequency, flank pain, hematuria, incontinence, pain, urgency, other Neurologic/Psychiatric: Denies: anxiety, depressed, emotional problems, headache, numbness, paresthesia, pre-existing deficit, seizure, tingling, tremors, weakness, other Endocrine: Denies: excessive sweating, flushing, intolerance to cold, intolerance to heat, increased hunger, increased thirst, increased urine, unexplained weight gain, unexplained weight loss, other MSK: denies joint pains, swelling, stiffness Hematologic/Lymphatic: Denies: anemia, easy bleeding, easy bruising, other Objective Last 24 Hour Vital Signs Date Time Temp Pulse Resp B/P (MAP) Pulse Ox O2 Delivery O2 Flow Rate FiO2 11/22/19 16:00 98.1 90 18 112/78 (89) 97 11/22/19 12:00 98.2 86 17 110/74 (86) 98 11/22/19 09:00 Room Air 11/22/19 08:00 98.6 74 18 107/69 (82) 99 11/22/19 05:25 98.0 11/22/19 04:15 98.0 80 20 118/80 (93) 98 11/22/19 00:22 97.9 67 18 109/66 (80) 97 11/21/19 20:45 98.2 67 18 114/64 (81) 96 11/21/19 20:09 Room Air Intake and Output 11/21/19 11/22/19 19:00 07:00 Intake Total 835.0 ml 1465.0 ml Balance 835.0 ml 1465.0 ml Intake Oral 400 ml IV Total 835.0 ml 1065.0 ml # Voids 3 # Bowel Movements 3 Laboratory Tests 11/22/19 04:46: White Blood Count 7.8, Red Blood Count 4.55, Hemoglobin 13.6, Hematocrit 39.7, Mean Corpuscular Volume 87, Mean Corpuscular Hemoglobin 29.9, Mean Corpuscular Hemoglobin Concent 34.2, Red Cell Distribution Width 11.4L, Platelet Count 329, Mean Platelet Volume 5.8L, Neutrophils (%) (Auto) 60.1, Lymphocytes (%) (Auto) 29.8, Monocytes (%) (Auto) 5.6, Eosinophils (%) (Auto) 3.5H, Basophils (%) (Auto ) 1.0, Sodium Level 142, Potassium Level 4.1, Chloride Level 107, Carbon Dioxide Level 23, Anion Gap 12, Blood Urea Nitrogen 10, Creatinine 0.8, Estimat Glomerular Filtration Rate > 60, Glucose Level 90, Calcium Level 8.7, Phosphorus Level 3.6, Magnesium Level 1.8 11/22/19 17:00: Urine Color Pale yellow, Urine Appearance Slightly cloudy, Urine pH 6, Urine Specific [place] 1.010, Urine Protein Negative, Urine Glucose (UA) Negative, Urine Ketones Negative, Urine Blood 2+H, Urine Nitrite Negative, Urine Bilirubin Negative, Urine Urobilinogen Normal, Urine Leukocyte Esterase Negative , Urine RBC 2-4H, Urine WBC 0-2, Urine Squamous Epithelial Cells ModerateH, Urine Bacteria Few Height (Feet): 5 Height (Inches): 2.00 Weight (Pounds): 136 Objective General: WDWN female in NAD, A&O x 4 HEENT: Normocephalic cephalic atraumatic, pupils equal round reactive to light and accommodation, nares patent and no symmetrical, no tonsillar exudates, mucous membranes moist CV: Regular rate regular rhythm, no murmurs, rubs, or gallops Pulm: Lungs clear to auscultation bilaterally. No wheezes, rhonchi, or rales GI: Soft, mild tenderness to palpation in lower abdomen (unchanged), without rebound or guarding. Nondistended, bowel sounds present Neuro: CN 2-12 intact bilaterally, no focal signs. Ext: No lower extremity edema bilaterally Skin: no rashes lesions or ulcers Msk: Joints symmetrical in upper extremity and lower extremity bilaterally, no joint swelling. Lymph: No lymphadenopathy in upper extremity and lower extremity Jono-Wollin,Ha D.O. Nov 22, 2019 19:52
--- NOTE | 2019-11-22 23:45 | Consultation ---
DATE OF CONSULTATION: 11/22/2019 CONSULTING PHYSICIAN: Naldo Ball M.D. REFERRING PHYSICIAN: . REASON FOR CONSULTATION: For evaluation of abdominal pain and hematuria. HISTORY OF PRESENT ILLNESS: This is a 63-year-old female. She was admitted to the hospital because of abdominal pain, which appears to be diffuse and radiating to her back. She had a GI workup, which is ongoing. She did have EGD and colonoscopy, which did show some gastritis, diverticulosis. She had a CT scan, which showed questionable colitis. She was noted to have hematuria. Urology evaluation is requested. She does complain of some pressure with voiding. PAST MEDICAL HISTORY: Significant for history of diabetes. PAST SURGICAL HISTORY: As above. MEDICATIONS: Current medication list in the hospital was reviewed. She is on Mylicon, Benadryl, Protonix, Zosyn, Vasotec. ALLERGIES: To ketorolac, tromethamine, levofloxacin, and tetracycline. SOCIAL HISTORY: She is a smoker of occasional pot. REVIEW OF SYSTEMS: As above. FAMILY HISTORY: Noncontributory. PHYSICAL EXAMINATION: GENERAL: Slightly cachectic female, in no acute distress. VITAL SIGNS: Temperature is 98.1, blood pressure is 112/78, pulse 90, respirations 18. HEENT: Normocephalic. NECK: Supple. ABDOMEN: Soft. BACK: No CVA tenderness. EXTREMITIES: No clubbing, cyanosis. LABORATORY DATA: BUN is 10, creatinine 0.8, potassium 4.1. White count 7.8, hemoglobin 13.6, and platelets are 229. UA on admit showed too numerous to count rbc's. Repeat UA showed 2 to 4 rbc's. She did have a blood culture, which is negative so far. DIAGNOSTIC IMAGING STUDIES: The patient had a CT scan of the abdomen and pelvis. The kidneys were reported to be unremarkable. No hydronephrosis. The bladder was reported unremarkable. There was suggestion of inflammatory colitis or diverticulitis with some wall thickening of the descending colon. IMPRESSION: 1. Abdominal pain. 2. Hematuria. 3. Urinary frequency by history. 4. Possible neurogenic bladder. PLAN AND DISCUSSION: Again, the patient does have abdominal pain. The exact etiology is unknown. At this time, I do not see any obvious urologic issue causing the pain. However, she did have microhematuria. The nephrolithiasis may be possibility, even though it was not mentioned on the CT scan, which was done with contrast. However, at this time, there is no hydronephrosis reported. The patient will be monitored clinically. I will check a bladder scan to make sure she is emptying well and Paredes if needed and at some point, she can have a cystoscopy to evaluate the bladder, which can be done as an outpatient. Thank you for this consultation. Naldo Ball M.D. DR: FAUSTINA JOB#: [id number] CC:
[2019-11-23] MEDS: DiphenhydrAMINE 50mg/ml Inj IVP PRN ×3 (02:03→21:56)
[2019-11-23] MEDS: Morphine Sulfate 2mg/ml Inj(IV/IM USE ONLY) IVP PRN ×2 (02:04→06:32)
[2019-11-23 03:54] VITALS: BP 117/70
[2019-11-23] MEDS: Piperacillin/Tazobactam 3.375 GM in NS 110 ML IVPB SCH ×3 (04:01→21:56)
[2019-11-23] MEDS: LR 1000ml 1,000 ML IV SCH ×2 (04:01→17:32)
--- NOTE | 2019-11-23 07:15 | NUR ---
HAND-OFF: Report given to Howard Clark RN.
--- NOTE | 2019-11-23 07:26 | NUR ---
NURSE NOTES: received report from DIAEN Rangel. patient in bed. A&Ox4, verbally responsive. no respiratory distress noted. pain on abd. residual post urine 17 this morning. IV on LH22g running LR@75/hr. stool sample need to be collected. bed in the lowest position and locked. call light within reach. will continue to provide plan of care.
[2019-11-23 08:00] VITALS: BP 104/64
--- NOTE | 2019-11-23 08:00 | Urology Progress Note ---
Assessment/Plan Status: stable Assessment/Plan: 1. Abdominal pain. 2. Hematuria. 3. Urinary frequency by history. 4. Possible neurogenic bladder. monitor clinically can consider adding anticholinergics but concern for constipation cysto later abx as ordered f/u on blood cx Subjective Allergies: Coded Allergies: LEVOFLOXACIN (Verified Allergy, Mild, ANAPHYLAXIS, 10/18/16) KETOROLAC TROMETHAMINE (Verified Allergy, Unknown, 10/18/16) Pt received toradol (yesterday) in my care with absolutely no adverse reaction. - Jaber TETRACYCLINE (Verified Allergy, Unknown, 10/18/16) Subjective c/o hemorrhoids, constipated, PVR 17 cc Objective Last 24 Hour Vital Signs Date Time Temp Pulse Resp B/P (MAP) Pulse Ox O2 Delivery O2 Flow Rate FiO2 11/23/19 07:13 97.5 11/23/19 03:54 97.5 60 20 117/70 (86) 96 11/22/19 23:56 98.0 81 21 104/73 (83) 94 11/22/19 20:02 Room Air 11/22/19 20:00 98.0 66 21 113/71 (85) 97 11/22/19 16:00 98.1 90 18 112/78 (89) 97 11/22/19 12:00 98.2 86 17 110/74 (86) 98 11/22/19 09:00 Room Air Intake and Output 11/22/19 11/23/19 19:00 07:00 Intake Total 1565.0 ml 572.5 ml Output Total 80 ml Balance 1565.0 ml 492.5 ml Intake Oral 800 ml IV Total 765.0 ml 572.5 ml Post Void Residual 80 ml Bladder Scan Volume Amount 51-75 ml <10 ml <10 ml 11-30 ml # Voids 4 4 Microbiology Date/Time Source Procedure Growth Status 11/20/19 17:53 Blood Blood Culture - Preliminary NO GROWTH AFTER 48 HOURS Resulted Current Medications Medications (Trade) Dose Ordered Sig/Raimundo Route PRN Reason Start Time Stop Time Status Last Admin Dose Admin Diphenhydramine HCl (Benadryl) 25 mg Q4H PRN IVP Itching 11/21/19 19:44 12/21/19 19:43 11/23/19 06:31 Enalaprilat (Vasotec) 2.5 mg Q6H PRN IV SBP>160 11/19/19 15:30 12/19/19 15:29 Hydralazine HCl (Apresoline) 25 mg Q6H PRN ORAL SBP >160 11/20/19 12:30 12/20/19 12:29 Lactated Ringer's 1,000 ml @ 75 mls/hr [id number] IV 11/22/19 14:00 12/22/19 13:59 11/23/19 04:01 Morphine Sulfate (Morphine Sulfate) 2 mg Q4H PRN IVP For Pain 11/21/19 19:44 11/28/19 19:43 11/23/19 06:32 Ondansetron HCl (Zofran) 4 mg Q6H PRN IVP Nausea & Vomiting 11/19/19 15:15 12/19/19 15:14 11/21/19 08:07 Pantoprazole (Protonix) 40 mg EVERY 12 HOURS IVP 11/19/19 21:00 12/19/19 20:59 11/22/19 21:33 Piperacillin Sod/ Tazobactam Sod 3.375 gm/Sodium Chloride 110 ml @ 27.5 mls/hr EVERY 8 HOURS IVPB 11/19/19 16:00 11/24/19 15:59 11/23/19 04:01 Simethicone (Mylicon) 80 mg QID ORAL 11/22/19 13:00 12/22/19 12:59 11/22/19 21:33 Laboratory Tests 11/22/19 17:00: Urine Color Pale yellow, Urine Appearance Slightly cloudy, Urine pH 6, Urine Specific [place] 1.010, Urine Protein Negative, Urine Glucose (UA) Negative, Urine Ketones Negative, Urine Blood 2+H, Urine Nitrite Negative, Urine Bilirubin Negative, Urine Urobilinogen Normal, Urine Leukocyte Esterase Negative , Urine RBC 2-4H, Urine WBC 0-2, Urine Squamous Epithelial Cells ModerateH, Urine Bacteria Few Height (Feet): 5 Height (Inches): 2.00 Weight (Pounds): 136 Objective exam stable Naldo Ball MD Nov 23, 2019 08:00
--- NOTE | 2019-11-23 08:01 | NUR ---
NURSE NOTES: seen by Dr. medrano. cancelled monitoring post residual. order noted and carried out.
[2019-11-23] MEDS: Simethicone 80mg tab ORAL SCH ×4 (08:14→21:55)
[2019-11-23] MEDS: Pantoprazole Inj IVP SCH ×2 (08:14→22:01)
[2019-11-23] MEDS ORDERED: traMADol 50mg tab ORAL PRN ×2 (09:45)
[2019-11-23] MEDS ORDERED: oxyCODONE 5mg IR tab ORAL PRN ×2 (09:45→13:45)
--- NOTE | 2019-11-23 10:52 | GI Progress Note ---
Assessment/Plan Problems: (1) Abdominal pain ICD Codes: R10.9 - Abdominal pain SNOMED: [id number] Status: stable Status Narrative Discussed with Dr. Salazar. Assessment/Plan s/p EGD/colonoscopy SUMMARY OF FINDINGS: 1. Gastritis, status post biopsy. 2. Diverticulosis. 3. Two colonic polyps removed from the rectosigmoid area. 4. Nonspecific colitis in the left colon. 5. Internal hemorrhoids. RECOMMENDATIONS: dc planning anusol HC prn advance diet bowel regimen Follow up biopsy results and treat accordingly. The patient was seen and examined at bedside and all new and available data was reviewed in the patients chart. I agree with the above findings, impression and plan. (Patient seen earlier today. Signature stamp does not reflect patient encounter time.). - Mario Salazar MD Subjective Subjective abdominal bloating hemorrhoidal pain Objective Last 24 Hour Vital Signs Date Time Temp Pulse Resp B/P (MAP) Pulse Ox O2 Delivery O2 Flow Rate FiO2 11/23/19 08:00 97.2 71 18 104/64 (77) 99 11/23/19 07:13 97.5 11/23/19 03:54 97.5 60 20 117/70 (86) 96 11/22/19 23:56 98.0 81 21 104/73 (83) 94 11/22/19 20:02 Room Air 11/22/19 20:00 98.0 66 21 113/71 (85) 97 11/22/19 16:00 98.1 90 18 112/78 (89) 97 11/22/19 12:00 98.2 86 17 110/74 (86) 98 Intake and Output 11/22/19 11/23/19 19:00 07:00 Intake Total 1565.0 ml 572.5 ml Output Total 80 ml Balance 1565.0 ml 492.5 ml Intake Oral 800 ml IV Total 765.0 ml 572.5 ml Post Void Residual 80 ml Bladder Scan Volume Amount 51-75 ml <10 ml <10 ml 11-30 ml # Voids 4 4 Laboratory Tests Test 11/22/19 17:00 Urine Color Pale yellow Urine Appearance Slightly cloudy Urine pH 6 (4.5-8.0) Urine Specific [place] 1.010 (1.005-1.035) Urine Protein Negative (NEGATIVE) Urine Glucose (UA) Negative (NEGATIVE) Urine Ketones Negative (NEGATIVE) Urine Blood 2+ (NEGATIVE) H Urine Nitrite Negative (NEGATIVE) Urine Bilirubin Negative (NEGATIVE) Urine Urobilinogen Normal MG/DL (0.0-1.0) Urine Leukocyte Esterase Negative (NEGATIVE) Urine RBC 2-4 /HPF (0 - 2) H Urine WBC 0-2 /HPF (0 - 2) Urine Squamous Epithelial Cells Moderate /LPF (NONE/OCC) H Urine Bacteria Few /HPF (NONE) Height (Feet): 5 Height (Inches): 2.00 Weight (Pounds): 136 General Appearance: WD/WN, no apparent distress, alert Cardiovascular: normal rate Respiratory/Chest: normal breath sounds, no respiratory distress Abdominal Exam: normal bowel sounds, non tender, soft Extremities: normal range of motion, non-tender Fatoumata Loo NP Nov 23, 2019 10:51
[2019-11-23] MEDS ORDERED: Acetaminophen 500mg (ES) tab ORAL PRN (11:45)
[2019-11-23 12:00] VITALS: BP 108/69
--- NOTE | 2019-11-23 12:22 | NUR ---
NURSE NOTES: patient c/o pain 04/12 now. Roxycodone will be available at 1345. notified dr. olsen and received order change to start time now 1221. order noted and carried out.
[2019-11-23] MEDS: oxyCODONE 5mg IR tab ORAL PRN ×3 (12:37→21:55)
[2019-11-23] MEDS: Docusate 100mg cap ORAL SCH ×2 (12:37→17:31)
--- NOTE | 2019-11-23 13:06 | Surgery Progress Note ---
Surgery Progress Note Subjective Symptoms: improved, pain absent, tolerating diet, voiding well, passing flatus Objective Last 24 Hour Vital Signs Date Time Temp Pulse Resp B/P (MAP) Pulse Ox O2 Delivery O2 Flow Rate FiO2 11/23/19 12:00 97.6 75 19 108/69 (82) 98 11/23/19 09:00 Room Air 11/23/19 08:00 97.2 71 18 104/64 (77) 99 11/23/19 07:13 97.5 11/23/19 03:54 97.5 60 20 117/70 (86) 96 11/22/19 23:56 98.0 81 21 104/73 (83) 94 11/22/19 20:02 Room Air 11/22/19 20:00 98.0 66 21 113/71 (85) 97 11/22/19 16:00 98.1 90 18 112/78 (89) 97 I&O Intake and Output 11/22/19 11/23/19 19:00 07:00 Intake Total 1565.0 ml 572.5 ml Output Total 80 ml Balance 1565.0 ml 492.5 ml Intake Oral 800 ml IV Total 765.0 ml 572.5 ml Post Void Residual 80 ml Bladder Scan Volume Amount 51-75 ml <10 ml <10 ml 11-30 ml # Voids 4 4 Cardiovascular: RSR Respiratory: clear Abdomen: soft, non-tender, present bowel sounds Extremities: no cyanosis Laboratory Tests Test 11/22/19 17:00 Urine Color Pale yellow Urine Appearance Slightly cloudy Urine pH 6 (4.5-8.0) Urine Specific [place] 1.010 (1.005-1.035) Urine Protein Negative (NEGATIVE) Urine Glucose (UA) Negative (NEGATIVE) Urine Ketones Negative (NEGATIVE) Urine Blood 2+ (NEGATIVE) H Urine Nitrite Negative (NEGATIVE) Urine Bilirubin Negative (NEGATIVE) Urine Urobilinogen Normal MG/DL (0.0-1.0) Urine Leukocyte Esterase Negative (NEGATIVE) Urine RBC 2-4 /HPF (0 - 2) H Urine WBC 0-2 /HPF (0 - 2) Urine Squamous Epithelial Cells Moderate /LPF (NONE/OCC) H Urine Bacteria Few /HPF (NONE) Plan Problems: (1) Rectal bleeding (2) Diverticulitis Assessment & Plan: Lung bases: Mild dependent atelectasis in bilateral lung bases. ABDOMEN: Liver: Unremarkable. No suspicious parenchymal lesions Gallbladder and bile ducts: Unremarkable. No calcified stones. No ductal dilation. Pancreas: Unremarkable. No mass. No ductal dilation. Spleen: Unremarkable. No splenomegaly. Adrenals: Unremarkable. No mass. Kidneys and ureters: Unremarkable. No solid mass. No hydronephrosis. Stomach and bowel: Segmental wall thickening throughout the descending and sigmoid colon, suggesting infectious or inflammatory colitis or diverticulitis. Remainder of the colon appears unremarkable. No abnormally distended loops of small bowel. GE junction and stomach appear unremarkable. PELVIS: Appendix: The appendix appears normal. Bladder: Unremarkable. No visible stones. Reproductive: The uterus and ovaries are not visualized and may be surgically absent. ABDOMEN and PELVIS: Intraperitoneal space: Unremarkable. No free air. No significant fluid collection. Bones/joints: No acute fracture. No dislocation. Soft tissues: Unremarkable. Vasculature: Atherosclerosis throughout the abdominal aorta and its proximal branches. No abdominal aortic aneurysm. Lymph nodes: Unremarkable. No enlarged lymph nodes. IMPRESSION: Findings suggesting infectious or inflammatory colitis versus diverticulitis, with segmental wall thickening throughout the descending and sigmoid colon. Mild adjacent inflammatory stranding. No adjacent free air or fluid collection. No evidence of bowel obstruction. (3) Abdominal pain Assessment & Plan: This is a 63-year-old female who presented with few months of abdominal pain with acute worsening over the last 2 days nausea vomiting and blood in stool. CT noted. Admitted for the care management. Surgery called patient evaluated. Patient that she feels little bit better now. Currently no nausea fever chills. States she is hungry and wants to eat a little bit more than a liquid diet that she is on. On abdominal examination no acute findings currently. Soft nontender nondistended bowel sounds noted no significant discomfort on palpation at this time. Labs noted otherwise stable. No acute surgical intervention indicated recommended Okay for diet Plan for colonoscopy as per GI Antibiotics for colitis for his diverticulitis We will follow with recommendations and serial exams Thank you for let me participate in patient's care Additional Comments This is a late entry for November 22, 2019. Patient seen and examined and states she was already doing better unfortunately was called to the emergency department ensuing following to the operating room and was unable to complete note Sumeet Gomes Nov 23, 2019 13:06
--- NOTE | 2019-11-23 13:07 | Surgery Progress Note ---
Surgery Progress Note Subjective Additional Comments Patient seen and examined bedside. States he is feeling much better is ready to go home soon. Patient states that she is had hemorrhoids for a fair amount of time now. Occasionally requires him to push them. We have known about this but has not initially seen outpatient treatment and since inpatient will is asking if potential intervention can be performed. I long discussion with the patient by these findings and gave her outpatient follow-up so that she can see me in the office and we can schedule elective surgery as inpatient surgery is not indicated or recommended currently for hemorrhoids. Objective Last 24 Hour Vital Signs Date Time Temp Pulse Resp B/P (MAP) Pulse Ox O2 Delivery O2 Flow Rate FiO2 11/23/19 12:00 97.6 75 19 108/69 (82) 98 11/23/19 09:00 Room Air 11/23/19 08:00 97.2 71 18 104/64 (77) 99 11/23/19 07:13 97.5 11/23/19 03:54 97.5 60 20 117/70 (86) 96 11/22/19 23:56 98.0 81 21 104/73 (83) 94 11/22/19 20:02 Room Air 11/22/19 20:00 98.0 66 21 113/71 (85) 97 11/22/19 16:00 98.1 90 18 112/78 (89) 97 I&O Intake and Output 11/22/19 11/23/19 19:00 07:00 Intake Total 1565.0 ml 572.5 ml Output Total 80 ml Balance 1565.0 ml 492.5 ml Intake Oral 800 ml IV Total 765.0 ml 572.5 ml Post Void Residual 80 ml Bladder Scan Volume Amount 51-75 ml <10 ml <10 ml 11-30 ml # Voids 4 4 Cardiovascular: RSR Respiratory: clear Abdomen: soft, non-tender, present bowel sounds Extremities: no cyanosis Laboratory Tests Test 11/22/19 17:00 Urine Color Pale yellow Urine Appearance Slightly cloudy Urine pH 6 (4.5-8.0) Urine Specific [place] 1.010 (1.005-1.035) Urine Protein Negative (NEGATIVE) Urine Glucose (UA) Negative (NEGATIVE) Urine Ketones Negative (NEGATIVE) Urine Blood 2+ (NEGATIVE) H Urine Nitrite Negative (NEGATIVE) Urine Bilirubin Negative (NEGATIVE) Urine Urobilinogen Normal MG/DL (0.0-1.0) Urine Leukocyte Esterase Negative (NEGATIVE) Urine RBC 2-4 /HPF (0 - 2) H Urine WBC 0-2 /HPF (0 - 2) Urine Squamous Epithelial Cells Moderate /LPF (NONE/OCC) H Urine Bacteria Few /HPF (NONE) Plan Problems: (1) Rectal bleeding Assessment & Plan: Scope performed no acute findings. Likely related to hemorrhoids. Grade 2 hemorrhoids. Outpatient follow-up given. Patient was seen in the office on Wednesday and schedule elective hemorrhoidectomy. (2) Diverticulitis Assessment & Plan: Lung bases: Mild dependent atelectasis in bilateral lung bases. ABDOMEN: Liver: Unremarkable. No suspicious parenchymal lesions Gallbladder and bile ducts: Unremarkable. No calcified stones. No ductal dilation. Pancreas: Unremarkable. No mass. No ductal dilation. Spleen: Unremarkable. No splenomegaly. Adrenals: Unremarkable. No mass. Kidneys and ureters: Unremarkable. No solid mass. No hydronephrosis. Stomach and bowel: Segmental wall thickening throughout the descending and sigmoid colon, suggesting infectious or inflammatory colitis or diverticulitis. Remainder of the colon appears unremarkable. No abnormally distended loops of small bowel. GE junction and stomach appear unremarkable. PELVIS: Appendix: The appendix appears normal. Bladder: Unremarkable. No visible stones. Reproductive: The uterus and ovaries are not visualized and may be surgically absent. ABDOMEN and PELVIS: Intraperitoneal space: Unremarkable. No free air. No significant fluid collection. Bones/joints: No acute fracture. No dislocation. Soft tissues: Unremarkable. Vasculature: Atherosclerosis throughout the abdominal aorta and its proximal branches. No abdominal aortic aneurysm. Lymph nodes: Unremarkable. No enlarged lymph nodes. IMPRESSION: Findings suggesting infectious or inflammatory colitis versus diverticulitis, with segmental wall thickening throughout the descending and sigmoid colon. Mild adjacent inflammatory stranding. No adjacent free air or fluid collection. No evidence of bowel obstruction. (3) Abdominal pain Assessment & Plan: This is a 63-year-old female who presented with few months of abdominal pain with acute worsening over the last 2 days nausea vomiting and blood in stool. CT noted. Admitted for the care management. Surgery called patient evaluated. Patient that she feels little bit better now. Currently no nausea fever chills. States she is hungry and wants to eat a little bit more than a liquid diet that she is on. On abdominal examination no acute findings currently. Soft nontender nondistended bowel sounds noted no significant discomfort on palpation at this time. Labs noted otherwise stable. No acute surgical intervention indicated recommended Okay for diet Plan for colonoscopy as per GI Antibiotics for colitis for his diverticulitis We will follow with recommendations and serial exams Thank you for let me participate in patient's care Sumeet Gomes Nov 23, 2019 13:07
[2019-11-23 16:00] VITALS: BP 110/64
--- NOTE | 2019-11-23 19:20 | NUR ---
NURSE NOTES: Received patient sleeping comfortably on bed. no sob noted. with iv line on the left hand running LR AT 75 ML/HR. with commode on the bedside. bed locked and in lowest position. call light and light button within easy reach. will continue plan of care.
--- NOTE | 2019-11-23 19:26 | NUR ---
HAND-OFF: Report given to DIANE Osman.
[2019-11-23 20:00] VITALS: BP 105/65
[2019-11-23] MEDS ORDERED: Miralax 17gm pkt ORAL SCH (21:00)
--- NOTE | 2019-11-23 21:49 | General Progress Note ---
Assessment/Plan Status: stable Assessment/Plan: #Infectious vs Inflammatory Colitis,w/ associated Hematochezia/Melena ( GI symptoms present for 2 months, bleeding present for 2 days) #Gastritis --> Patient on outpatient ppi Appreciate gastroenterology consultation EGD and colonoscopy today. Await results IV fluids- Continue Appreciate surgery consultation Zosyn Follow-up blood cultures Follow-up stool studies including C. difficile and fecal WBC Check ESR- normal Continue to monitor patient's p.o. intake. Currently not eating well. #Microscopic hematuria Urology consult: Dr. Ball Can follow-up as an outpatient for cystoscopy #Suspected urinary retention Check postvoid residuals Paredes catheter if indicated Discussed with urology Could be etiology of patient's abdominal pain? #DMII--> not on home meds, controlled with diet Obtain A1c. 5.9 -Fasting sugars normal. No need to check while hospitalized #Hypokalemia #Hypomagnesemia #hypophosphatemia Replete PRN FENPPX DVTPPX: SCDs GI PPX: Protonix Fluids: As above Diet: Regular Lines: None PT/OT: Not needed patient is ambulatory at baseline Code status: Full Dispo: 1 to 2 days Reason for Continued Hospitalization: Abdominal pain 39 minutes spent on this encounter. Discussed with GI, surgery, Urology, and RN. > 50% spent on counseling and care coordination. Time of note may not reflect time patient was seen. Subjective Allergies: Coded Allergies: TRAMADOL (Verified Allergy, Severe, 11/23/19) nausea vomiting LEVOFLOXACIN (Verified Allergy, Mild, ANAPHYLAXIS, 10/18/16) KETOROLAC TROMETHAMINE (Verified Allergy, Unknown, 10/18/16) Pt received toradol (yesterday) in my care with absolutely no adverse reaction. - Jaber TETRACYCLINE (Verified Allergy, Unknown, 10/18/16) Subjective No acute events overnight per nursing. No further signs of bleeding or melena. EGD and colonoscopy were negative. Follow-up on biopsy results. Patient continues to complain of lower abdominal pain and back pain. She states that she is had some right hip pain groin eating into her groin as well. She denies any history of bladder cancer or family history of bladder cancer. Denies dysuria. Overall feels better but still not feeling very good and not eating well. Review of systems: As of 11/22/19 Constitutional: Denies: chills, diaphoresis, fever, malaise, weakness, other HEENT: Denies: eye pain, blurred vision, tearing, double vision, ear pain, ear discharge, nose pain, nose congestion, throat pain, throat swelling, mouth pain , mouth swelling, Cardiovascular: Denies: chest pain, edema, lightheadedness, palpitations, syncope, Respiratory: Denies: cough, orthopnea, shortness of breath, SOB with excertion , SOB at rest, sputum, stridor, wheezing, other Gastrointestinal/Abdominal: See HPI. Denies nausea or vomiting. Genitourinary: Denies: burning, discharge, frequency, flank pain, hematuria, incontinence, pain, urgency, other Neurologic/Psychiatric: Denies: anxiety, depressed, emotional problems, headache, numbness, paresthesia, pre-existing deficit, seizure, tingling, tremors, weakness, other Endocrine: Denies: excessive sweating, flushing, intolerance to cold, intolerance to heat, increased hunger, increased thirst, increased urine, unexplained weight gain, unexplained weight loss, other MSK: denies joint pains, swelling, stiffness Hematologic/Lymphatic: Denies: anemia, easy bleeding, easy bruising, other Objective Last 24 Hour Vital Signs Date Time Temp Pulse Resp B/P (MAP) Pulse Ox O2 Delivery O2 Flow Rate FiO2 11/23/19 16:00 97.4 75 19 110/64 (79) 97 11/23/19 12:00 97.6 75 19 108/69 (82) 98 11/23/19 09:00 Room Air 11/23/19 08:00 97.2 71 18 104/64 (77) 99 11/23/19 07:13 97.5 11/23/19 03:54 97.5 60 20 117/70 (86) 96 11/22/19 23:56 98.0 81 21 104/73 (83) 94 Intake and Output 11/22/19 11/23/19 19:00 07:00 Intake Total 1565.0 ml 572.5 ml Output Total 80 ml Balance 1565.0 ml 492.5 ml Intake Oral 800 ml IV Total 765.0 ml 572.5 ml Post Void Residual 80 ml Bladder Scan Volume Amount 51-75 ml <10 ml <10 ml 11-30 ml # Voids 4 4 Height (Feet): 5 Height (Inches): 2.00 Weight (Pounds): 136 Objective General: WDWN female in NAD, A&O x 4 HEENT: Normocephalic cephalic atraumatic, pupils equal round reactive to light and accommodation, nares patent and no symmetrical, no tonsillar exudates, mucous membranes moist CV: Regular rate regular rhythm, no murmurs, rubs, or gallops Pulm: Lungs clear to auscultation bilaterally. No wheezes, rhonchi, or rales GI: Soft, mild tenderness to palpation in lower abdomen (unchanged), without rebound or guarding. Nondistended, bowel sounds present Neuro: CN 2-12 intact bilaterally, no focal signs. Ext: No lower extremity edema bilaterally Skin: no rashes lesions or ulcers Msk: Joints symmetrical in upper extremity and lower extremity bilaterally, no joint swelling. Lymph: No lymphadenopathy in upper extremity and lower extremity Ha Jay D.O. Nov 23, 2019 21:49
--- NOTE | 2019-11-23 22:35 | General Progress Note ---
Assessment/Plan Status: stable Assessment/Plan: #Infectious vs Inflammatory Colitis,w/ associated Hematochezia/Melena ( GI symptoms present for 2 months, bleeding present for 2 days) #Gastritis --> Patient on outpatient ppi Appreciate gastroenterology consultation EGD and colonoscopy today. Await results IV fluids- Continue Appreciate surgery consultation Zosyn Follow-up blood cultures Follow-up stool studies including C. difficile and fecal WBC Check ESR- normal Continue to monitor patient's p.o. intake. Currently not eating well.- Improving #Microscopic hematuria Urology consult: Dr. Ball Can follow-up as an outpatient for cystoscopy -No PVRs #Suspected urinary retention Check postvoid residuals: negative Paredes catheter if indicated Discussed with urology #DMII--> not on home meds, controlled with diet Obtain A1c. 5.9 -Fasting sugars normal. No need to check while hospitalized #Hypokalemia #Hypomagnesemia #hypophosphatemia Replete PRN FENPPX DVTPPX: SCDs GI PPX: Protonix Fluids: As above Diet: Regular Lines: None PT/OT: Not needed patient is ambulatory at baseline Code status: Full Dispo: tomorrow Reason for Continued Hospitalization: Abdominal pain 38 minutes spent on this encounter. Discussed with GI, surgery, Urology, and RN. > 50% spent on counseling and care coordination. Time of note may not reflect time patient was seen. Subjective Date patient seen: Nov 23, 2019 Allergies: Coded Allergies: TRAMADOL (Verified Allergy, Severe, 11/23/19) nausea vomiting LEVOFLOXACIN (Verified Allergy, Mild, ANAPHYLAXIS, 10/18/16) KETOROLAC TROMETHAMINE (Verified Allergy, Unknown, 10/18/16) Pt received toradol (yesterday) in my care with absolutely no adverse reaction. - Jaber TETRACYCLINE (Verified Allergy, Unknown, 10/18/16) Subjective No acute events overnight per nursing. No further signs of bleeding or melena. Patient still feels tired but overall improved. Complaining of abdominal bloating but no pain. Negative PVRs. No dysuriar, frequency or urgency. Eating well. Overall feels better but still not feeling very good and not eating well. Review of systems: As of 11/23/19 Constitutional: Denies: chills, diaphoresis, fever, malaise, weakness, other HEENT: Denies: eye pain, blurred vision, tearing, double vision, ear pain, ear discharge, nose pain, nose congestion, throat pain, throat swelling, mouth pain , mouth swelling, Cardiovascular: Denies: chest pain, edema, lightheadedness, palpitations, syncope, Respiratory: Denies: cough, orthopnea, shortness of breath, SOB with excertion , SOB at rest, sputum, stridor, wheezing, other Gastrointestinal/Abdominal: See HPI. Denies nausea or vomiting. +abdominal bloating Genitourinary: Denies: burning, discharge, frequency, flank pain, hematuria, incontinence, pain, urgency, other Neurologic/Psychiatric: Denies: anxiety, depressed, emotional problems, headache, numbness, paresthesia, pre-existing deficit, seizure, tingling, tremors, weakness, other Endocrine: Denies: excessive sweating, flushing, intolerance to cold, intolerance to heat, increased hunger, increased thirst, increased urine, unexplained weight gain, unexplained weight loss, other MSK: denies joint pains, swelling, stiffness Hematologic/Lymphatic: Denies: anemia, easy bleeding, easy bruising, other Objective Last 24 Hour Vital Signs Date Time Temp Pulse Resp B/P (MAP) Pulse Ox O2 Delivery O2 Flow Rate FiO2 11/23/19 21:00 Room Air 11/23/19 20:00 97.8 94 19 105/65 (78) 98 11/23/19 16:00 97.4 75 19 110/64 (79) 97 11/23/19 12:00 97.6 75 19 108/69 (82) 98 11/23/19 09:00 Room Air 11/23/19 08:00 97.2 71 18 104/64 (77) 99 11/23/19 07:13 97.5 11/23/19 03:54 97.5 60 20 117/70 (86) 96 11/22/19 23:56 98.0 81 21 104/73 (83) 94 Intake and Output 11/22/19 11/23/19 19:00 07:00 Intake Total 1565.0 ml 572.5 ml Output Total 80 ml Balance 1565.0 ml 492.5 ml Intake Oral 800 ml IV Total 765.0 ml 572.5 ml Post Void Residual 80 ml Bladder Scan Volume Amount 51-75 ml <10 ml <10 ml 11-30 ml # Voids 4 4 Height (Feet): 5 Height (Inches): 2.00 Weight (Pounds): 136 Objective General: WDWN female in NAD, A&O x 4 HEENT: Normocephalic cephalic atraumatic, pupils equal round reactive to light and accommodation, nares patent and no symmetrical, no tonsillar exudates, mucous membranes moist CV: Regular rate regular rhythm, no murmurs, rubs, or gallops Pulm: Lungs clear to auscultation bilaterally. No wheezes, rhonchi, or rales GI: Soft, mild tenderness to palpation in lower abdomen (improved), without rebound or guarding. Nondistended, bowel sounds present Neuro: CN 2-12 intact bilaterally, no focal signs. Ext: No lower extremity edema bilaterally Skin: no rashes lesions or ulcers Msk: Joints symmetrical in upper extremity and lower extremity bilaterally, no joint swelling. Lymph: No lymphadenopathy in upper extremity and lower extremity Ha Jay D.O. Nov 23, 2019 22:35
[2019-11-24] VITALS: BP 103/60
--- NOTE | 2019-11-24 01:42 | NUR ---
NURSE NOTES: PT asleep on bed. no sob. provided rest and comfort. bed locked and in lowest position. call light and light button within easy reach. will continue plan of care
--- NOTE | 2019-11-24 02:00 | NUR ---
NURSE NOTES: i accidently put a care plan of pressure ulcer in the process plans which is supposed to be on my other pt(admission). pt has no wounds since admission. called IT help desk. per it, we cannot erase it but just inactivate it instead. inactivated the pressure ulcer care plan. charge nurse made aware.
[2019-11-24 04:00] VITALS: BP 126/66
[2019-11-24] MEDS: LR 1000ml 1,000 ML IV SCH (04:57)
[2019-11-24] MEDS: DiphenhydrAMINE 50mg/ml Inj IVP PRN ×3 (04:57→14:57)
[2019-11-24] MEDS: Piperacillin/Tazobactam 3.375 GM in NS 110 ML IVPB SCH ×2 (04:57→14:56)
[2019-11-24] MEDS: oxyCODONE 5mg IR tab ORAL PRN ×3 (04:58→14:56)
[2019-11-24 07:00] LABS: BASOPHILS % (AUTO) 0.9 % (0.0-2.0); EOSINOPHILS % (AUTO) 3.9 % (0.0-3.0); HEMATOCRIT 42.8 % (37.0-47.0); HEMOGLOBIN 14.7 G/DL (12.0-16.0); MEAN CORPUSCULAR VOLUME 86 FL (80-99); MONOCYTES % (AUTO) 6.3 % (1.0-10.0); NEUTROPHILS % (AUTO) 64.8 % (45.0-75.0); PLATELET COUNT 336 K/UL (150-450); RED BLOOD COUNT 4.96 M/UL (4.20-5.40); RED CELL DISTRIBUTION WIDTH 11.1 % (11.6-14.8); WHITE BLOOD COUNT 10.1 K/UL (4.8-10.8)
--- NOTE | 2019-11-24 07:21 | NUR ---
HAND-OFF: Report given to dakota guajardo.
--- NOTE | 2019-11-24 07:30 | NUR ---
NURSE NOTES: received report from DIANE Osman. patient in bed. A&Ox4, verbally responsive. no respiratory distress noted. discomfort on Abd and back. no BM yet. IV on LH22g running LR@75/hr. skin intact. contact isolation. PPE at all times. bed in the lowest position and locked. call light within reach. will continue to provide plan of care.
[2019-11-24 07:40] LABS: ALANINE AMINOTRANSFERASE 27 U/L (12-78); ALBUMIN 3.4 G/DL (3.4-5.0); ALBUMIN/GLOBULIN RATIO 0.9 (1.0-2.7); ALKALINE PHOSPHATASE 106 U/L (46-116); ANION GAP 14 mmol/L (5-15); ASPARTATE AMINO TRANSFERASE 16 U/L (15-37); BILIRUBIN,TOTAL 0.3 MG/DL (0.2-1.0); BLOOD UREA NITROGEN 11 mg/dL (7-18); CALCIUM 9.6 MG/DL (8.5-10.1); CARBON DIOXIDE 24 MMOL/L (21-32); CHLORIDE 104 MMOL/L (98-107); CREATININE 0.8 MG/DL (0.55-1.30); PHOSPHORUS 3.8 MG/DL (2.5-4.9); POTASSIUM 4.1 MMOL/L (3.5-5.1); SODIUM 141 MMOL/L (136-145)
[2019-11-24 08:00] VITALS: BP 99/71
--- NOTE | 2019-11-24 08:10 | Urology Progress Note ---
Assessment/Plan Status: stable Assessment/Plan: 1. Abdominal pain. 2. Hematuria. 3. Urinary frequency by history. 4. Possible neurogenic bladder. monitor clinically can consider adding anticholinergics but concern for constipation cysto later abx as ordered f/u on blood cx Subjective Allergies: Coded Allergies: TRAMADOL (Verified Allergy, Severe, 11/23/19) nausea vomiting LEVOFLOXACIN (Verified Allergy, Mild, ANAPHYLAXIS, 10/18/16) KETOROLAC TROMETHAMINE (Verified Allergy, Unknown, 10/18/16) Pt received toradol (yesterday) in my care with absolutely no adverse reaction. - Jaber TETRACYCLINE (Verified Allergy, Unknown, 10/18/16) Subjective c/o hemorrhoids, constipated, PVR 17 cc Objective Last 24 Hour Vital Signs Date Time Temp Pulse Resp B/P (MAP) Pulse Ox O2 Delivery O2 Flow Rate FiO2 11/24/19 04:00 97.6 81 19 126/66 (86) 98 11/24/19 00:00 98.1 91 20 103/60 (74) 96 11/23/19 21:00 Room Air 11/23/19 20:00 97.8 94 19 105/65 (78) 98 11/23/19 16:00 97.4 75 19 110/64 (79) 97 11/23/19 12:00 97.6 75 19 108/69 (82) 98 11/23/19 09:00 Room Air Intake and Output 11/23/19 11/24/19 19:00 07:00 Intake Total 1875.0 ml 1162.5 ml Balance 1875.0 ml 1162.5 ml Intake Oral 1220 ml 650 ml IV Total 655.0 ml 512.5 ml # Voids 7 3 Microbiology Date/Time Source Procedure Growth Status 11/20/19 17:53 Blood Blood Culture - Preliminary NO GROWTH AFTER 72 HOURS Resulted Current Medications Medications (Trade) Dose Ordered Sig/Raimundo Route PRN Reason Start Time Stop Time Status Last Admin Dose Admin Acetaminophen (Tylenol) 500 mg Q4H PRN ORAL Mild Pain/Temp > 100.5 11/23/19 11:45 12/23/19 11:44 Diphenhydramine HCl (Benadryl) 25 mg Q4H PRN IVP Itching 11/21/19 19:44 12/21/19 19:43 11/24/19 04:57 Docusate Sodium (Colace) 100 mg THREE TIMES A DAY ORAL 11/23/19 13:00 12/23/19 12:59 11/23/19 17:31 Enalaprilat (Vasotec) 2.5 mg Q6H PRN IV SBP>160 11/19/19 15:30 12/19/19 15:29 Hydralazine HCl (Apresoline) 25 mg Q6H PRN ORAL SBP >160 11/20/19 12:30 12/20/19 12:29 Hydrocortisone (Anusol HC) 1 applic TWICE A DAY RECTAL 11/23/19 18:00 12/23/19 17:59 11/23/19 18:00 Lactated Ringer's 1,000 ml @ 75 mls/hr [id number] IV 11/22/19 14:00 12/22/19 13:59 11/24/19 04:57 Ondansetron HCl (Zofran) 4 mg Q6H PRN IVP Nausea & Vomiting 11/19/19 15:15 12/19/19 15:14 11/21/19 08:07 Oxycodone HCl (Roxicodone) 5 mg Q4H PRN ORAL moderate to severe pain 11/23/19 12:21 11/30/19 13:44 11/24/19 04:58 Pantoprazole (Protonix) 40 mg EVERY 12 HOURS IVP 11/19/19 21:00 12/19/19 20:59 11/23/19 22:01 Piperacillin Sod/ Tazobactam Sod 3.375 gm/Sodium Chloride 110 ml @ 27.5 mls/hr EVERY 8 HOURS IVPB 11/19/19 16:00 11/24/19 15:59 11/24/19 04:57 Polyethylene Glycol (Miralax) 17 gm BEDTIME ORAL 11/23/19 21:00 12/23/19 20:59 11/23/19 21:55 Simethicone (Mylicon) 80 mg QID ORAL 11/22/19 13:00 12/22/19 12:59 11/23/19 21:55 Laboratory Tests 11/24/19 05:43: White Blood Count 10.1, Red Blood Count 4.96, Hemoglobin 14.7, Hematocrit 42.8, Mean Corpuscular Volume 86, Mean Corpuscular Hemoglobin 29.7, Mean Corpuscular Hemoglobin Concent 34.5, Red Cell Distribution Width 11.1L, Platelet Count 336, Mean Platelet Volume 5.6L, Neutrophils (%) (Auto) 64.8, Lymphocytes (%) (Auto) 24.0, Monocytes (%) (Auto) 6.3, Eosinophils (%) (Auto) 3.9H, Basophils (%) (Auto ) 0.9, Sodium Level 141, Potassium Level 4.1, Chloride Level 104, Carbon Dioxide Level 24, Anion Gap 14, Blood Urea Nitrogen 11, Creatinine 0.8, Estimat Glomerular Filtration Rate > 60, Glucose Level 95, Calcium Level 9.6, Phosphorus Level 3.8, Magnesium Level 1.9, Total Bilirubin 0.3, Aspartate Amino Transf (AST/SGOT) 16, Alanine Aminotransferase (ALT/SGPT) 27, Alkaline Phosphatase 106, Total Protein 7.4, Albumin 3.4, Globulin 4.0, Albumin/Globulin Ratio 0.9L Height (Feet): 5 Height (Inches): 2.00 Weight (Pounds): 136 Objective exam stable Naldo Ball MD Nov 24, 2019 08:10
[2019-11-24] MEDS: Pantoprazole Inj IVP SCH (08:35)
[2019-11-24] MEDS: Simethicone 80mg tab ORAL SCH ×2 (08:36→13:13)
[2019-11-24] MEDS: Docusate 100mg cap ORAL SCH ×2 (08:36→13:13)
--- NOTE | 2019-11-24 10:57 | GI Progress Note ---
Assessment/Plan Problems: (1) Abdominal pain ICD Codes: R10.9 - Abdominal pain SNOMED: [id number] Status: stable, unchanged Status Narrative Discussed with Dr. Salazar. Assessment/Plan s/p EGD/colonoscopy SUMMARY OF FINDINGS: 1. Gastritis, status post biopsy. 2. Diverticulosis. 3. Two colonic polyps removed from the rectosigmoid area. 4. Nonspecific colitis in the left colon. 5. Internal hemorrhoids. RECOMMENDATIONS: dc planning anusol HC prn advance diet bowel regimen Follow up biopsy results and treat accordingly. surgical consult for hemorrhoids The patient was seen and examined at bedside and all new and available data was reviewed in the patients chart. I agree with the above findings, impression and plan. (Patient seen earlier today. Signature stamp does not reflect patient encounter time.). - Mario Salazar MD Subjective Subjective abdominal bloating hemorrhoidal pain Objective Last 24 Hour Vital Signs Date Time Temp Pulse Resp B/P (MAP) Pulse Ox O2 Delivery O2 Flow Rate FiO2 11/24/19 09:00 Room Air 11/24/19 08:00 97.9 75 20 99/71 (80) 98 11/24/19 04:00 97.6 81 19 126/66 (86) 98 11/24/19 00:00 98.1 91 20 103/60 (74) 96 11/23/19 21:00 Room Air 11/23/19 20:00 97.8 94 19 105/65 (78) 98 11/23/19 16:00 97.4 75 19 110/64 (79) 97 11/23/19 12:00 97.6 75 19 108/69 (82) 98 Intake and Output 11/23/19 11/24/19 19:00 07:00 Intake Total 1875.0 ml 1162.5 ml Balance 1875.0 ml 1162.5 ml Intake Oral 1220 ml 650 ml IV Total 655.0 ml 512.5 ml # Voids 7 3 Laboratory Tests Test 11/24/19 05:43 White Blood Count 10.1 K/UL (4.8-10.8) Red Blood Count 4.96 M/UL (4.20-5.40) Hemoglobin 14.7 G/DL (12.0-16.0) Hematocrit 42.8 % (37.0-47.0) Mean Corpuscular Volume 86 FL (80-99) Mean Corpuscular Hemoglobin 29.7 PG (27.0-31.0) Mean Corpuscular Hemoglobin Concent 34.5 G/DL (32.0-36.0) Red Cell Distribution Width 11.1 % (11.6-14.8) L Platelet Count 336 K/UL (150-450) Mean Platelet Volume 5.6 FL (6.5-10.1) L Neutrophils (%) (Auto) 64.8 % (45.0-75.0) Lymphocytes (%) (Auto) 24.0 % (20.0-45.0) Monocytes (%) (Auto) 6.3 % (1.0-10.0) Eosinophils (%) (Auto) 3.9 % (0.0-3.0) H Basophils (%) (Auto) 0.9 % (0.0-2.0) Sodium Level 141 MMOL/L (136-145) Potassium Level 4.1 MMOL/L (3.5-5.1) Chloride Level 104 MMOL/L (98-107) Carbon Dioxide Level 24 MMOL/L (21-32) Anion Gap 14 mmol/L (5-15) Blood Urea Nitrogen 11 mg/dL (7-18) Creatinine 0.8 MG/DL (0.55-1.30) Estimat Glomerular Filtration Rate > 60 mL/min (>60) Glucose Level 95 MG/DL (74-106) Calcium Level 9.6 MG/DL (8.5-10.1) Phosphorus Level 3.8 MG/DL (2.5-4.9) Magnesium Level 1.9 MG/DL (1.8-2.4) Total Bilirubin 0.3 MG/DL (0.2-1.0) Aspartate Amino Transf (AST/SGOT) 16 U/L (15-37) Alanine Aminotransferase (ALT/SGPT) 27 U/L (12-78) Alkaline Phosphatase 106 U/L (46-116) Total Protein 7.4 G/DL (6.4-8.2) Albumin 3.4 G/DL (3.4-5.0) Globulin 4.0 g/dL Albumin/Globulin Ratio 0.9 (1.0-2.7) L Height (Feet): 5 Height (Inches): 2.00 Weight (Pounds): 136 General Appearance: WD/WN, no apparent distress, alert Cardiovascular: normal rate Respiratory/Chest: normal breath sounds, no respiratory distress Abdominal Exam: normal bowel sounds, non tender, soft Extremities: normal range of motion, non-tender Fatoumata Loo NP Nov 24, 2019 10:57
[2019-11-24 12:00] VITALS: BP 113/67
[2019-11-24] MEDS ORDERED: MIRALAX17 G2 ORAL ×2 (13:08→14:36)
[2019-11-24] MEDS ORDERED: SIMETHICONE80 MG ORAL ×2 (13:08→14:36)
[2019-11-24] MEDS ORDERED: ANUCORT-HC25 MG RECTAL (13:08)
[2019-11-24] MEDS ORDERED: ACETAMINOPHEN500 MG ORAL (13:08)
[2019-11-24] MEDS ORDERED: COLACE100 MG ORAL ×2 (13:08→14:36)
--- NOTE | 2019-11-24 13:18 | Discharge Instructions ---
Discharge Instructions Discharge Instructions Diet: regular Resume Normal Activity?: Yes Activity: resume normal activities Special Instructions Follow up with PCP within one week Follow up with Dr. Gomes next wednesday. Follow up with Dr. Salazar (GI) in 1-2 weeks. [facility]. Call to make appointment [phone]. You may have cramping for next 1-2 weeks after the coloscopy. Return if symptoms worsen For Congestive Heart Failure Reminder Report to your physician any weight gain of 5 pounds or more in one week. Ha Jay D.O. Nov 24, 2019 13:18
--- NOTE | 2019-11-24 14:16 | Surgery Progress Note ---
Surgery Progress Note Subjective Additional Comments no acute events d/c today will f/u with me wed in office to schedule hemorrhoid Objective Last 24 Hour Vital Signs Date Time Temp Pulse Resp B/P (MAP) Pulse Ox O2 Delivery O2 Flow Rate FiO2 11/24/19 12:00 97.3 77 19 113/67 (82) 97 11/24/19 09:00 Room Air 11/24/19 08:00 97.9 75 20 99/71 (80) 98 11/24/19 04:00 97.6 81 19 126/66 (86) 98 11/24/19 00:00 98.1 91 20 103/60 (74) 96 11/23/19 21:00 Room Air 11/23/19 20:00 97.8 94 19 105/65 (78) 98 11/23/19 16:00 97.4 75 19 110/64 (79) 97 I&O Intake and Output 11/23/19 11/24/19 19:00 07:00 Intake Total 1875.0 ml 1162.5 ml Balance 1875.0 ml 1162.5 ml Intake Oral 1220 ml 650 ml IV Total 655.0 ml 512.5 ml # Voids 7 3 Cardiovascular: RSR Respiratory: clear Abdomen: soft, non-tender, present bowel sounds Extremities: no edema, no tenderness, no cyanosis Laboratory Tests Test 11/24/19 05:43 White Blood Count 10.1 K/UL (4.8-10.8) Red Blood Count 4.96 M/UL (4.20-5.40) Hemoglobin 14.7 G/DL (12.0-16.0) Hematocrit 42.8 % (37.0-47.0) Mean Corpuscular Volume 86 FL (80-99) Mean Corpuscular Hemoglobin 29.7 PG (27.0-31.0) Mean Corpuscular Hemoglobin Concent 34.5 G/DL (32.0-36.0) Red Cell Distribution Width 11.1 % (11.6-14.8) L Platelet Count 336 K/UL (150-450) Mean Platelet Volume 5.6 FL (6.5-10.1) L Neutrophils (%) (Auto) 64.8 % (45.0-75.0) Lymphocytes (%) (Auto) 24.0 % (20.0-45.0) Monocytes (%) (Auto) 6.3 % (1.0-10.0) Eosinophils (%) (Auto) 3.9 % (0.0-3.0) H Basophils (%) (Auto) 0.9 % (0.0-2.0) Sodium Level 141 MMOL/L (136-145) Potassium Level 4.1 MMOL/L (3.5-5.1) Chloride Level 104 MMOL/L (98-107) Carbon Dioxide Level 24 MMOL/L (21-32) Anion Gap 14 mmol/L (5-15) Blood Urea Nitrogen 11 mg/dL (7-18) Creatinine 0.8 MG/DL (0.55-1.30) Estimat Glomerular Filtration Rate > 60 mL/min (>60) Glucose Level 95 MG/DL (74-106) Calcium Level 9.6 MG/DL (8.5-10.1) Phosphorus Level 3.8 MG/DL (2.5-4.9) Magnesium Level 1.9 MG/DL (1.8-2.4) Total Bilirubin 0.3 MG/DL (0.2-1.0) Aspartate Amino Transf (AST/SGOT) 16 U/L (15-37) Alanine Aminotransferase (ALT/SGPT) 27 U/L (12-78) Alkaline Phosphatase 106 U/L (46-116) Total Protein 7.4 G/DL (6.4-8.2) Albumin 3.4 G/DL (3.4-5.0) Globulin 4.0 g/dL Albumin/Globulin Ratio 0.9 (1.0-2.7) L Plan Problems: (1) Rectal bleeding Assessment & Plan: Scope performed no acute findings. Likely related to hemorrhoids. Grade 2 hemorrhoids. Outpatient follow-up given. Patient was seen in the office on Wednesday and schedule elective hemorrhoidectomy. (2) Diverticulitis Assessment & Plan: Lung bases: Mild dependent atelectasis in bilateral lung bases. ABDOMEN: Liver: Unremarkable. No suspicious parenchymal lesions Gallbladder and bile ducts: Unremarkable. No calcified stones. No ductal dilation. Pancreas: Unremarkable. No mass. No ductal dilation. Spleen: Unremarkable. No splenomegaly. Adrenals: Unremarkable. No mass. Kidneys and ureters: Unremarkable. No solid mass. No hydronephrosis. Stomach and bowel: Segmental wall thickening throughout the descending and sigmoid colon, suggesting infectious or inflammatory colitis or diverticulitis. Remainder of the colon appears unremarkable. No abnormally distended loops of small bowel. GE junction and stomach appear unremarkable. PELVIS: Appendix: The appendix appears normal. Bladder: Unremarkable. No visible stones. Reproductive: The uterus and ovaries are not visualized and may be surgically absent. ABDOMEN and PELVIS: Intraperitoneal space: Unremarkable. No free air. No significant fluid collection. Bones/joints: No acute fracture. No dislocation. Soft tissues: Unremarkable. Vasculature: Atherosclerosis throughout the abdominal aorta and its proximal branches. No abdominal aortic aneurysm. Lymph nodes: Unremarkable. No enlarged lymph nodes. IMPRESSION: Findings suggesting infectious or inflammatory colitis versus diverticulitis, with segmental wall thickening throughout the descending and sigmoid colon. Mild adjacent inflammatory stranding. No adjacent free air or fluid collection. No evidence of bowel obstruction. (3) Abdominal pain Assessment & Plan: This is a 63-year-old female who presented with few months of abdominal pain with acute worsening over the last 2 days nausea vomiting and blood in stool. CT noted. Admitted for the care management. Surgery called patient evaluated. Patient that she feels little bit better now. Currently no nausea fever chills. States she is hungry and wants to eat a little bit more than a liquid diet that she is on. On abdominal examination no acute findings currently. Soft nontender nondistended bowel sounds noted no significant discomfort on palpation at this time. Labs noted otherwise stable. No acute surgical intervention indicated recommended Okay for diet Plan for colonoscopy as per GI Antibiotics for colitis for his diverticulitis We will follow with recommendations and serial exams Thank you for let me participate in patient's care Sumeet Gomes Nov 24, 2019 14:16
[2019-11-24] MEDS ORDERED: ANUSOL-HC25 MG RECTAL (14:36)
[2019-11-24 16:00] VITALS: BP 105/64
--- NOTE | 2019-11-24 17:59 | NUR ---
NURSE NOTES: patient discharged to home accompanied by sister with fair condition. A&Ox4, verbally responsive. no respiratory distress noted. no pain at this time. Removed IV and ID band. provided dc packet. checked and counted belongings with patient. obtained sign. given new prescribed medications from [facility].
--- NOTE | 2019-11-29 10:34 | Discharge Summary ---
Discharge Summary Hospital Course Date of Admission Nov 20, 2019 at 16:17 Date of Discharge Nov 24, 2019 at 17:54 Admitting Diagnosis Abdominal Pain HPI Rebecca Helton is a 63 year old female who was admitted on Nov 20, 2019 at 16:17 for Abdominal Pain Consultations gastroenterology, urology, general surgery Procedures EGD/Colonoscopy Hospital Course This is a 63-year-old female with a past medical history of gastritis and diabetes type 2 mellitus, currently managed by diet and lifestyle, who presents to emergency room with a chief complaint of worsening abdominal pain with associated diarrhea, nausea, vomiting, hematochezia and melena for the past 2 days. Patient states that the hematochezia and melena have been ongoing for approximately 2 days however the abdominal pain has actually been consistently going on for around 2 months. Patient states she had a colonoscopy around 2 years ago and was told the results were normal. Patient only takes omeprazole at home for her gastritis. In the emergency room CT abdomen pelvis was performed which revealed concerning findings for colitis versus diverticulitis, and in the ED, surgery was consulted. Given the patient does have melena, have also consulted GI as this could be inflammatory bowel disease not yet diagnosed as patient is nonseptic appearing he does not have an elevated white blood cell count. Patient denies a family history of autoimmune disease, inflammatory bowel disease, she only states there is a family history of cancer, unknown what type , and diabetes. Gastroenterology was consulted who performed EGD/Colonoscopy. This showed gastritis, diverticulosis, nonspecific colitis, and internal hemorrhoids. Patient monitored in hospital and PO intake improved. GI said no abx needed on discharge. General surgery made appointment for outpatient evaluation of hemorrhoids. Labs and vitals remained stable. Needs f/u with urology as outpatient for microscopic hematuria. Needs cystoscopy. Explained to patient she will likely have some cramping after colonscopy and this is normal. Given simethecone, stool softeners and anusol for hemorrhoids. Patient medically stable on discharge, discharged home. Constitutional: Denies: chills, diaphoresis, fever, malaise, weakness, other HEENT: Denies: eye pain, blurred vision, tearing, double vision, ear pain, ear discharge, nose pain, nose congestion, throat pain, throat swelling, mouth pain , mouth swelling, Cardiovascular: Denies: chest pain, edema, lightheadedness, palpitations, syncope, Respiratory: Denies: cough, orthopnea, shortness of breath, SOB with excertion , SOB at rest, sputum, stridor, wheezing, other Gastrointestinal/Abdominal: See HPI. Denies nausea or vomiting. +abdominal bloating Genitourinary: Denies: burning, discharge, frequency, flank pain, hematuria, incontinence, pain, urgency, other Neurologic/Psychiatric: Denies: anxiety, depressed, emotional problems, headache, numbness, paresthesia, pre-existing deficit, seizure, tingling, tremors, weakness, other Endocrine: Denies: excessive sweating, flushing, intolerance to cold, intolerance to heat, increased hunger, increased thirst, increased urine, unexplained weight gain, unexplained weight loss, other MSK: denies joint pains, swelling, stiffness Hematologic/Lymphatic: Denies: anemia, easy bleeding, easy bruising, other General: WDWN female in NAD, A&O x 4 HEENT: Normocephalic cephalic atraumatic, pupils equal round reactive to light and accommodation, nares patent and no symmetrical, no tonsillar exudates, mucous membranes moist CV: Regular rate regular rhythm, no murmurs, rubs, or gallops Pulm: Lungs clear to auscultation bilaterally. No wheezes, rhonchi, or rales GI: Soft, nontender to palpation, without rebound or guarding. Nondistended, bowel sounds present Neuro: CN 2-12 intact bilaterally, no focal signs. Ext: No lower extremity edema bilaterally Skin: no rashes lesions or ulcers Msk: Joints symmetrical in upper extremity and lower extremity bilaterally, no joint swelling. Lymph: No lymphadenopathy in upper extremity and lower extremity last prog note #Infectious vs Inflammatory Colitis,w/ associated Hematochezia/Melena ( GI symptoms present for 2 months, bleeding present for 2 days) #Gastritis --> Patient on outpatient ppi Appreciate gastroenterology consultation EGD and colonoscopy today. Await results IV fluids- Continue Appreciate surgery consultation Zosyn Follow-up blood cultures Follow-up stool studies including C. difficile and fecal WBC Check ESR- normal Continue to monitor patient's p.o. intake. Currently not eating well.- Improving #Microscopic hematuria Urology consult: Dr. Ball Can follow-up as an outpatient for cystoscopy -No PVRs #Suspected urinary retention Check postvoid residuals: negative Paredes catheter if indicated Discussed with urology #DMII--> not on home meds, controlled with diet Obtain A1c. 5.9 -Fasting sugars normal. No need to check while hospitalized #Hypokalemia #Hypomagnesemia #hypophosphatemia Replete PRN FENPPX DVTPPX: SCDs GI PPX: Protonix Fluids: As above Diet: Regular Lines: None PT/OT: Not needed patient is ambulatory at baseline Code status: Full Dispo: tomorrow Reason for Continued Hospitalization: Abdominal pain 38 minutes spent on this discharge. Discussed with GI, surgery, Urology, and RN. > 50% spent on counseling and care coordination. Time of note may not reflect time patient was seen. Discharge Condition Upon Discharge: stable Discharge Vital Signs Last Vital Signs Date Time Temp Pulse Resp B/P (MAP) Pulse Ox O2 Delivery O2 Flow Rate FiO2 11/24/19 16:00 98.4 77 19 105/64 (78) 96 11/24/19 09:00 Room Air 11/21/19 13:45 3 Discharge Disposition Patient was discharged to home Discharge Diagnoses: (1) Microscopic hematuria (2) Diabetes mellitus type 2 in nonobese (3) Gastritis (4) Hematochezia (5) Internal hemorrhoid (6) Abdominal pain (7) Opiate dependence Discharge Instructions Discharge Instructions Activity: resume normal activities Ha Jay D.O. Nov 29, 2019 10:34
--- NOTE | 2019-12-24 10:12 | Coder Physician Query ---
Clarification is required for compliance, coding accuracy, and to reflect severity of illness for this patient Dear Dr. Jay Date:12/24/19 Measurement Psychologist/CDS Name: KHANH Gonzalez Discharge Diagnoses: (1) Microscopic hematuria (2) Diabetes mellitus type 2 in nonobese (3) Gastritis (4) Hematochezia (5) Internal hemorrhoid SUMMARY OF COLONOCOPY FINDINGS: 1. Gastritis, status post biopsy. 2. Diverticulosis. 3. Two colonic polyps removed from the rectosigmoid area. See above for details. 4. Nonspecific colitis in the left colon. 5. Internal hemorrhoids. Dr Gomes's last progress note states rectal bleeding likely related to internal hemorrhoids and will follow up for hemorrhoidectomy. Please respond to the following question: What in your opinion was the underlying cause of the G.I bleeding/hematochezia? PHYSICIAN RESPONSE: Ha Jay D.O. Date Please also document in your Progress Notes and/or Discharge Summary and indicate if the condition was present on admission. ROSS
== END 2019-11-24 17:54 | disposition home or self-care (01) | DRG 393 ==
LOC: EMR 08:00 → 4E 08:39 → EDBEDREQ 11:44 → OBSVTOIN 11-20 16:17
PROC: 0DB78ZX Excision of Stomach, Pylorus, Via Natural or Artificial Opening Endoscopic, Diagnostic (ICD-10-PCS; principal; 2019-11-21 12:43)
PROC: 0DBN8ZZ Excision of Sigmoid Colon, Via Natural or Artificial Opening Endoscopic (ICD-10-PCS; principal; 2019-11-21 12:43)
DX: K64.8 Other hemorrhoids (principal); K29.71 Gastritis, unspecified, with bleeding; K57.91 Diverticulosis of intestine, part unspecified, without perforation or abscess with bleeding; A09 Infectious gastroenteritis and colitis, unspecified; D64.9 Anemia, unspecified; Z88.6 Allergy status to analgesic agent; Z88.1 Allergy status to other antibiotic agents; Z88.8 Allergy status to other drugs, medicaments and biological substances; E11.9 Type 2 diabetes mellitus without complications; K63.5 Polyp of colon; K52.9 Noninfective gastroenteritis and colitis, unspecified; E87.6 Hypokalemia; E83.42 Hypomagnesemia; E83.39 Other disorders of phosphorus metabolism
CPT/HCPCS: 36415; 71045; 74177; 80048; 80053; 81003; 82270; 82962; 83036; 83690; 83735; 84100; 84484; 85025; 85610; 85651; 85730; 86850; 86900; 86901; 87040; 93005; 94003; 94150; 96361; 96365; 96367; 96375; 96376; 99284; J2405; J2765; J7030; J8499

== ENCOUNTER 2020-05-22 16:47 | Emergency (ER) | payer MEDICARE, OTHER ==
[~2020-05-22] VITALS: Ht 157.5 cm; Wt 58.1 kg
[~2020-05-22 16:47] MED LIST changes: +ACETAMINOPHEN500 M5 ORAL; +ACETAMINOPHEN500 MG ORAL; +ANUCORT-HC25 MG RECTAL; +ANUSOL-HC25 MG RECTAL; +ASPIR 8181 MG ORAL; +MIRALAX17 G2 ORAL; +SIMETHICONE80 MG ORAL
--- NOTE | 2020-05-22 17:05 | NUR ---
ED Nurse Note: Patient walked into ER for c/o insect bite all over her arms and legs. pt states it is itchy and painful at the same time x 2 days.
[2020-05-22 17:10] VITALS: BP 10/74
--- NOTE | 2020-05-22 17:20 | Emergency Room Report ---
History of Present Illness General Chief Complaint: Skin Rash/Abscess Source: Patient Present Illness HPI 64-year-old female with no symptom past medical history other than gastritis currently taking Prilosec here complaining of pruritic and painful rash on bilateral ankles and arms. Reports testing after she was sleeping in her own bed. Denies any contact with new detergents or lotions. Reports that she is scratching another painful swollen. Denies any fever and chills. Minimal bleeding noted. Denies any recent travel. Denies anaphylaxis. Denies chest pain, shortness of breath, headache and dizziness. Has been taking Benadryl with minimal relief. Allergies: Coded Allergies: TRAMADOL (Verified Allergy, Severe, 11/23/19) nausea vomiting LEVOFLOXACIN (Verified Allergy, Mild, ANAPHYLAXIS, 10/18/16) KETOROLAC TROMETHAMINE (Verified Allergy, Unknown, 10/18/16) Pt received toradol (yesterday) in my care with absolutely no adverse reaction. - Jaber TETRACYCLINE (Verified Allergy, Unknown, 10/18/16) COVID-19 Screening Contact w/high risk pt: No Experienced COVID-19 symptoms?: No COVID-19 Testing performed HEALTH INFORMATICS SPECIALIST: No Patient History Past Medical History: see triage record Past Surgical History: none Pertinent Family History: none Last Menstrual Period: na Now: No Immunizations: UTD Reviewed Nursing Documentation: PMH: Agreed; PSxH: Agreed Nursing Documentation-PMH Past Medical History: No History, Except For Hx Hypertension: No Hx Pacemaker: No Hx Asthma: Yes Hx COPD: No Hx Cancer: No Hx Dialysis: No Hx Neurological Problems: No Hx Cerebrovascular Accident: No Hx Seizures: No Review of Systems All Other Systems: negative except mentioned in HPI Physical Exam Vital Signs Date Time Temp Pulse Resp B/P (MAP) Pulse Ox O2 Delivery O2 Flow Rate FiO2 05/22/20 16:51 98.1 80 17 10/74 (53) 98 Room Air Sp02 EP Interpretation: reviewed, normal General Appearance: no apparent distress, alert, GCS 15, non-toxic Head: normocephalic, atraumatic Eyes: bilateral eye normal inspection, bilateral eye PERRL ENT: hearing grossly normal, normal pharynx, no angioedema, normal voice Neck: full range of motion, supple/symm/no masses Respiratory: chest non-tender, lungs clear, normal breath sounds, speaking full sentences Cardiovascular #1: regular rate, rhythm, no edema Cardiovascular #2: 2+ dorsalis pedis (R), 2+ dorsalis pedis (L) Gastrointestinal: normal bowel sounds, non tender, soft, non-distended, no guarding, no rebound Genitourinary: no CVA tenderness Musculoskeletal: back normal, no calf tenderness Neurologic: alert, motor strength/tone normal, oriented x3, sensory intact, responsive, speech normal Psychiatric: judgement/insight normal, memory normal, mood/affect normal, no suicidal/homicidal ideation Skin: rash - Macular rashes bilateral ankles and with minimal swelling and minimal bleeding and pus drainage Lymphatic: no adenopathy Medical Decision Making PA Attestation All diagnoses and treatment plans were reviewed and discussed with my supervising physician Dr. Jones Diagnostic Impression: Primary Impression: Infected insect bite ER Course 64-year-old female with no symptom past medical history other than gastritis currently taking Prilosec here complaining of pruritic and painful rash on bilateral ankles and arms. Reports testing after she was sleeping in her own bed. Denies any contact with new detergents or lotions. Reports that she is scratching another painful swollen. Denies any fever and chills. Minimal bleeding noted. Denies any recent travel. Denies anaphylaxis. Denies chest pain, shortness of breath, headache and dizziness. Has been taking Benadryl with minimal relief. Ddx considered but are not limited to : Cellulitis, infected insect bite supply, , superficial infection, abscess Vital signs: are WNL, pt. is afebrile H&PE are most consistent with: Infected insect bite ORDERS: Prednisone, Tylenol, Augmentin, hydrocortisone cream ED INTERVENTIONS: First dose of prednisone, Tylenol, Augmentin p.o. DISCHARGE: At this time pt. is stable for d/c to home. Will provide printed patient care instructions, and any necessary prescriptions. Care plan and follow up instructions have been discussed with the patient prior to discharge. Patient take medication she started having more burning sensation after hot shower avoiding spicy food. Worsening symptom return to the emergency room. Last Vital Signs Date Time Temp Pulse Resp B/P (MAP) Pulse Ox O2 Delivery O2 Flow Rate FiO2 05/22/20 16:51 98.1 80 17 10 (53) 98 Room Air Disposition: HOME, SELF-CARE Condition: Stable Scripts Acetaminophen* (ACETAMINOPHEN 325MG TABLET*) 325 Mg Tablet 650 MG ORAL Q6H PRN for For Pain, #30 TAB Prov: Anil Boo 05/22/20 Hydrocortisone Acetate/Aloe V (Hydrocortisone-Aloe 0.5% Cream) 28.4 Gm Cream..g. 1 GM TP TID, #28 GM Prov: Anil Boo 05/22/20 Amoxicillin/Potassium Clav 875-125* (AUGMENTIN 875-125 TABLET*) 1 Each Tablet 1 TAB ORAL TWICE A DAY for 7 Days, #14 TAB Prov: Anil Boo 05/22/20 Prednisone* (PREDNISONE*) 20 Mg Tablet 20 MG ORAL DAILY for 5 Days, #5 TAB 0 Refills Prov: Anil Boo 05/22/20 Patient Instructions: Insect Bite Additional Instructions: Take medication as directed, follow primary care provider, avoid hot showers, avoid any spicy food, if worsening symptom return to the emergency room Anil Boo May 22, 2020 17:20
[2020-05-22] MEDS ORDERED: ACETAMINOPHEN325 M1 ORAL (17:23)
[2020-05-22] MEDS ORDERED: HYDROCORTISON28.4 G4 TP (17:23)
[2020-05-22] MEDS ORDERED: PREDNISONE20 MG ORAL (17:23)
[2020-05-22] MEDS ORDERED: AUGMENTIN 875-1 EAC1 ORAL (17:23)
[2020-05-22] MEDS ORDERED: Augmentin 875mg Tab ORAL ONE (17:30)
[2020-05-22 17:33] VITALS: BP 10/74
--- NOTE | 2020-05-22 17:33 | NUR ---
ED Nurse Note: Pt cleared by health care Provider for discharge. DC instructions/prescription was given and explained to pt and verbalized understanding of teachings. All medical deviecs such as ID band removed. Pt is AAO x4, ambulatory and left with all personal belongings.
== END 2020-05-22 17:33 | disposition home or self-care (01) ==
LOC: EMR 17:15
DX: S90.562A Insect bite (nonvenomous), left ankle, initial encounter (principal); S90.561A Insect bite (nonvenomous), right ankle, initial encounter; L08.9 Local infection of the skin and subcutaneous tissue, unspecified; W57.XXXA Bitten or stung by nonvenomous insect and other nonvenomous arthropods, initial encounter; Y92.9 Unspecified place or not applicable; Z88.8 Allergy status to other drugs, medicaments and biological substances
CPT/HCPCS: 99282; J7512

== ENCOUNTER 2020-12-10 10:50 | Emergency (ER) | payer MEDICARE, OTHER ==
[~2020-12-10] VITALS: Ht 157.5 cm; Wt 58.1 kg
[~2020-12-10 10:50] MED LIST changes: +ACETAMINOPHEN325 M1 ORAL; +HYDROCORTISON28.4 G4 TP; +PREDNISONE20 MG ORAL
[2020-12-10 11:43] VITALS: BP 119/74
[2020-12-10] MEDS ORDERED: Morphine Sulfate 4mg/ml Inj (IV USE ONLY) IVP ONE (12:00)
[2020-12-10 12:36] LABS: APPEARANCE,URINE SLIGHTLY CLOUDY; BILIRUBIN, URINE NEGATIVE (NEGATIVE); COLOR,URINE PALE YELLOW; GLUCOSE, URINE (UA) NEGATIVE (NEGATIVE); KETONES,URINE NEGATIVE (NEGATIVE); LEUKOCYTE ESTERASE ,URINE 3+ (NEGATIVE); NITRITE,URINE NEGATIVE (NEGATIVE); PH,URINE 7 (4.5-8.0); PROTEIN,URINE NEGATIVE (NEGATIVE); UROBILINOGEN,URINE NORMAL MG/DL (0.0-1.0)
[2020-12-10 12:40] LABS: BASOPHILS % (AUTO) 1.2 % (0.0-2.0); HEMATOCRIT 45.9 % (37.0-47.0); HEMOGLOBIN 14.8 G/DL (12.0-16.0); LYMPHOCYTES % (AUTO) 28.4 % (20.0-45.0); MEAN CORPUSCULAR VOLUME 90 FL (80-99); MONOCYTES % (AUTO) 6.8 % (1.0-10.0); NEUTROPHILS % (AUTO) 62.6 % (45.0-75.0); PLATELET COUNT 438 K/UL (150-450); WHITE BLOOD COUNT 9.6 K/UL (4.8-10.8)
[2020-12-10 12:50] LABS: ANION GAP 9 mmol/L (5-15); BLOOD UREA NITROGEN 14 mg/dL (7-18); CALCIUM 9.5 MG/DL (8.5-10.1); CARBON DIOXIDE 28 MMOL/L (21-32); CHLORIDE 105 MMOL/L (98-107); CREATININE 0.9 MG/DL (0.55-1.30); POTASSIUM 3.7 MMOL/L (3.5-5.1); SODIUM 142 MMOL/L (136-145)
[2020-12-10 12:54] LABS: ALANINE AMINOTRANSFERASE 25 U/L (12-78); ALBUMIN 4.1 G/DL (3.4-5.0); ALBUMIN/GLOBULIN RATIO 1.1 (1.0-2.7); ALKALINE PHOSPHATASE 135 U/L (46-116); ASPARTATE AMINO TRANSFERASE 16 U/L (15-37); BILIRUBIN,TOTAL 0.4 MG/DL (0.2-1.0)
[2020-12-10] MEDS ORDERED: Isovue-M 300 15ml INJ ONE (12:56)
--- NOTE | 2020-12-10 12:59 | NUR ---
Patient on route to CT
--- NOTE | 2020-12-10 14:49 | Diagnostic Imaging Report ---
EXAM: CT CT Abdomen Pelvis w/Contrast INDICATION: Reason For Exam: ABD PAIN. COMPARISON: 11/19/2019 TECHNIQUE: Axial images were obtained through the abdomen pelvis with intravenous contrast. Sagittal and coronal reformats are generated. All CT scans at this facility are performed using dose modulation techniques as appropriate to a performed exam including the following: automated exposure control with adjustment of the mA and/or kV according to patient size. RADIATION DOSE: CTDIvol: 4 mGy DLP: 194.1 mGy-cm Dose information generated by the CT scanner is available in PACS. FINDINGS: Mild atelectatic changes noted within the left lung base. The liver and spleen are homogeneous. Gallbladder is without sludge or stone and there is no wall thickening. The pancreas is unremarkable. Adrenals are normal in morphology. The kidneys are normal in size, shape and axis. There are some distal small bowel loops which are fluid-filled and mild wall thickening. Question underlying enteritis or mild ileus. Moderate stool lucencies noted throughout the colon. The appendix is normal. There is no free fluid or free air. No pathologic adenopathy demonstrated. Urinary bladder appears unremarkable. There is no suspicious superficial soft tissue or osseous abnormality. IMPRESSION: MILD FLUID DISTENTION OF DISTAL SMALL BOWEL LOOPS WITH MILD WALL THICKENING. FINDINGS SUGGEST POSSIBLE UNDERLYING ENTERITIS AND MILD ILEUS. NO DISCRETE BOWEL OBSTRUCTION. MODERATE STOOL LUCENCY THROUGHOUT THE COLON. DIVERTICULOSIS WITHOUT SIGN OF ACUTE DIVERTICULITIS
[2020-12-10] MEDS ORDERED: cefTRIAXone 500mg Inj IM ONE (15:15)
[2020-12-10] MEDS ORDERED: Lidocaine 1% MPF 10mg/ml 5ml INJ ONE (15:15)
[2020-12-10] MEDS ORDERED: Azithromycin 250mg tab ORAL ONE (15:15)
[2020-12-10] MEDS ORDERED: COLACE100 MG ORAL (15:32)
[2020-12-10] MEDS ORDERED: METRONIDAZOLE500 MG ORAL (15:32)
[2020-12-10] MEDS ORDERED: FAMOTIDINE20 MG ORAL (15:32)
== END 2020-12-10 15:40 | disposition home or self-care (01) ==
LOC: EMR 11:51
DX: K57.90 Diverticulosis of intestine, part unspecified, without perforation or abscess without bleeding (principal); R10.9 Unspecified abdominal pain
CPT/HCPCS: 36415; 74177; 80053; 81003; 83690; 85025; 96361; 96372; 96374; 99284; J0696; J2270; J7030; Q9965; Q9967